=== PATIENT | male | born 1930 | race Caucasian/White ===

== ENCOUNTER 2018-06-03 10:32 | Inpatient (IN) | payer MEDICARE ==
[2018-06-03] MEDS: SOD CHLORIDE 0.9% 1,000 ML IV (10:42)
[2018-06-03 10:49] LABS: ADD MAN DIFF? NO
[2018-06-03 10:51] LABS: ABNORMAL IP MESSAGE 1; BASOPHILS % 0.5 % (0.0-2.0); EOSINOPHILS # 0.1 10^3/ul (0.0-0.5); EOSINOPHILS % 1.1 % (0.0-7.0); HEMATOCRIT 24.2 % (42.0-52.0); LYMPHOCYTES # 1.3 10^3/ul (0.8-2.9); LYMPHOCYTES % 22.5 % (15.0-51.0); MEAN CORPUSCULAR HEMOGLOBIN 18.5 pg (29.0-33.0); MEAN CORPUSCULAR HGB CONC 27.3 g/dl (32.0-37.0); MEAN PLATELET VOLUME 9.7 fl (7.4-10.4); MONOCYTE # 0.4 10^3/ul (0.3-0.9); MONOCYTES % 7.3 % (0.0-11.0); NEUTROPHIL # 3.8 10^3/ul (1.6-7.5); NEUTROPHILS % 68.4 % (39.0-77.0); PLATELET COUNT 198 10^3/UL (140-415); POSITIVE DIFF @See below; RED BLOOD COUNT 3.56 10^6/ul (4.70-6.10); RED CELL DISTRIBUTION WIDTH 20.5 % (11.5-14.5)
[2018-06-03 10:51] LABS: WHITE BLOOD COUNT 5.6 10^3/ul (4.8-10.8)
[2018-06-03 10:55] LABS: HEMOGLOBIN 6.6 g/dl (14.0-18.0)
[2018-06-03] MEDS: SOD CHLORIDE 0.9% 250 ML IV (10:55)
[2018-06-03 11:07] LABS: ANION GAP 11 (8-16); BLOOD UREA NITROGEN 15 mg/dl (7-20); CALCIUM 9.2 mg/dl (8.4-10.2); CARBON DIOXIDE 25 mmol/L (21-31); CHLORIDE 107 mmol/L (97-110); GLUCOSE 112 mg/dl (70-220); POTASSIUM 4.1 mmol/L (3.5-5.1); SODIUM 139 mmol/L (135-144)
[2018-06-03 11:11] LABS: INR 1.05; PROTIME 13.8 Sec (11.9-14.9); PT RATIO 1.1
[2018-06-03 11:12] LABS: PARTIAL THROMBOPLASTIN TIME 27.5 Sec (23.0-35.0)
[2018-06-03 11:18] LABS: TROPONIN-I < 0.012 ng/ml (0.000-0.120)
[2018-06-03] MEDS ORDERED: ACETAMINOPHEN 325 MG TAB PO (12:30)
[2018-06-03] MEDS ORDERED: ONDANSETRON 4 MG INJ IV ×2 (12:30→14:00)
[2018-06-03] MEDS ORDERED: NACL 0.9% 3 ML SYG IV (14:00)
[2018-06-03 14:20] LABS: IRON 79 ug/dl (35-150)
[2018-06-03 14:29] LABS: % IRON SATURATION 20 % SAT (22-52); TOTAL IRON BINDING CAPACITY 389 ug/dl (241-421)
[2018-06-03 15:17] LABS: FERRITIN 6.1 ng/ml (11.1-264.0)
[2018-06-03 18:16] LABS: CREATINE KINASE 34 IU/L (23-200)
[2018-06-03 18:29] LABS: CK INDEX 0.6; CK-MB < 0.22 ng/ml (0.0-2.4); TROPONIN-I < 0.012 ng/ml (0.000-0.120)
[2018-06-03 18:32] LABS: FREE T4 (FREE THYROXINE) 0.95 ng/dl (0.85-1.93)
[2018-06-03 18:39] LABS: HEMATOCRIT 28.8 % (42.0-52.0); HEMOGLOBIN 8.2 g/dl (14.0-18.0)
[2018-06-03] MEDS: ATORVASTATIN 40 MG TAB PO (21:11)
[2018-06-03] MEDS: TAMSULOSIN (SR) 0.4 MG CAP PO (21:11)
[2018-06-04 06:32] LABS: ADD UMIC YES; UR ASCORBIC ACID NEGATIVE (NEGATIVE); UR BACTERIA FEW /HPF (NONE SEEN); UR BILIRUBIN (Dip) NEGATIVE (NEGATIVE); UR BLOOD (Dip) NEGATIVE (NEGATIVE); UR CLARITY CLEAR (CLEAR); UR COLOR YELLOW (YELLOW); UR GLUCOSE (Dip) NEGATIVE (NEGATIVE); UR KETONES (Dip) NEGATIVE (NEGATIVE); UR LEUKOCYTE ESTERASE (Dip) 1+ Leu/ul (NEGATIVE); UR NITRITE (Dip) NEGATIVE (NEGATIVE); UR RBC 1 /HPF (0-5); UR SPECIFIC GRAVITY (Dip) 1.012 (1.003-1.030); UR TOTAL PROTEIN (Dip) NEGATIVE (NEGATIVE); UR UROBILINOGEN (Dip) NEGATIVE (NEGATIVE); UR WBC 14 /HPF (0-5)
[2018-06-04 06:40] LABS: ADD MAN DIFF? NO
[2018-06-04 06:43] LABS: ABNORMAL IP MESSAGE 1; BASOPHILS % 0.5 % (0.0-2.0); EOSINOPHILS # 0.1 10^3/ul (0.0-0.5); EOSINOPHILS % 1.6 % (0.0-7.0); HEMATOCRIT 25.6 % (42.0-52.0); HEMOGLOBIN 7.4 g/dl (14.0-18.0); LYMPHOCYTES # 1.1 10^3/ul (0.8-2.9); LYMPHOCYTES % 19.1 % (15.0-51.0); MEAN CORPUSCULAR HEMOGLOBIN 20.3 pg (29.0-33.0); MEAN CORPUSCULAR HGB CONC 28.9 g/dl (32.0-37.0); MEAN CORPUSCULAR VOLUME 70.3 fl (82.0-101.0); MEAN PLATELET VOLUME 9.7 fl (7.4-10.4); MONOCYTE # 0.6 10^3/ul (0.3-0.9); MONOCYTES % 9.7 % (0.0-11.0); NEUTROPHIL # 3.9 10^3/ul (1.6-7.5); NEUTROPHILS % 68.9 % (39.0-77.0); PLATELET COUNT 168 10^3/UL (140-415); POSITIVE DIFF @See below; RED BLOOD COUNT 3.64 10^6/ul (4.70-6.10); RED CELL DISTRIBUTION WIDTH 21.3 % (11.5-14.5)
[2018-06-04 06:43] LABS: WHITE BLOOD COUNT 5.7 10^3/ul (4.8-10.8)
[2018-06-04 07:32] LABS: ALANINE AMINOTRANSFERASE 36 IU/L (13-69); ALBUMIN 2.5 g/dl (3.3-4.9); ALBUMIN/GLOBULIN RATIO 1.08; ALKALINE PHOSPHATASE 47 IU/L (42-121); ANION GAP 10 (8-16); ASPARTATE AMINO TRANSFERASE 27 IU/L (15-46); BILIRUBIN,INDIRECT 0.8 mg/dl (0-1.1); BILIRUBIN,TOTAL 0.8 mg/dl (0.2-1.3); BLOOD UREA NITROGEN 16 mg/dl (7-20); CALCIUM 8.7 mg/dl (8.4-10.2); CARBON DIOXIDE 27 mmol/L (21-31); CHLORIDE 108 mmol/L (97-110); CREATININE 1.12 mg/dl (0.61-1.24); GLUCOSE 98 mg/dl (70-220); POTASSIUM 4.1 mmol/L (3.5-5.1); SODIUM 141 mmol/L (135-144); TOTAL PROTEIN 4.8 g/dl (6.1-8.1)
[2018-06-04 07:35] LABS: CK-MB < 0.22 ng/ml (0.0-2.4); TROPONIN-I < 0.012 ng/ml (0.000-0.120)
[2018-06-04 07:49] LABS: CHOL/HDL RATIO 1.5 RATIO; CHOLESTEROL 51 mg/dl (100-200); CK INDEX 0.4; CREATINE KINASE 49 IU/L (23-200); HDL CHOLESTEROL 34 mg/dl (31-75); LDL CHOLESTEROL,CALCULATED 8 mg/dl; MAGNESIUM 2.2 mg/dl (1.7-2.5); TRIGLYCERIDES 47 mg/dl (0-149)
[2018-06-04 07:49] LABS: PHOSPHORUS 2.1 mg/dl (2.5-4.9)
[2018-06-04] MEDS: CHOLECALCIFEROL 2,000 UNIT CAP PO (08:41)
[2018-06-04] MEDS: FINASTERIDE 5 MG TAB PO (08:41)
[2018-06-04 09:06] LABS: HEMOGLOBIN A1C 5.8 % (0-5.9)
[2018-06-04 11:40] LABS: OCCULT BLOOD STOOL POSITIVE (NEGATIVE)
[2018-06-04] MEDS: SOD CHLORIDE 0.9% 1,000 ML IV (13:42)
[2018-06-04] MEDS: BISACODYL (EC) 5 MG TAB PO (15:20)
[2018-06-04] MEDS: SOD FERRIC GLUC COMPLX 125 MG in SOD CHLORIDE 0.9% 100 ML IVPB (16:20)
[2018-06-04] MEDS: MAGNESIUM CITRATE 300 ML BTL PO (18:04)
[2018-06-04] MEDS: POLYETHYLENE GLYCOL 3350 119 GM POWDER PO (18:04)
[2018-06-04] MEDS: TAMSULOSIN (SR) 0.4 MG CAP PO (20:24)
[2018-06-04] MEDS: ATORVASTATIN 40 MG TAB PO (20:24)
[2018-06-05] MEDS: SOD CHLORIDE 0.9% 1,000 ML IV ×2 (01:50→05:38)
[2018-06-05] MEDS: PANTOPRAZOLE 40 MG INJ IV (05:36)
[2018-06-05] MEDS: POLYETHYLENE GLYCOL 3350 119 GM POWDER PO (05:43)
[2018-06-05 06:15] LABS: ADD MAN DIFF? NO
[2018-06-05 06:30] LABS: ABNORMAL IP MESSAGE 1; BASOPHIL # 0.1 10^3/ul (0.0-0.1); BASOPHILS % 0.5 % (0.0-2.0); EOSINOPHILS % 0.4 % (0.0-7.0); HEMOGLOBIN 7.7 g/dl (14.0-18.0); LYMPHOCYTES # 1.1 10^3/ul (0.8-2.9); LYMPHOCYTES % 9.9 % (15.0-51.0); MEAN CORPUSCULAR HEMOGLOBIN 20.6 pg (29.0-33.0); MEAN CORPUSCULAR HGB CONC 28.5 g/dl (32.0-37.0); MEAN CORPUSCULAR VOLUME 72.4 fl (82.0-101.0); MEAN PLATELET VOLUME 9.9 fl (7.4-10.4); MONOCYTE # 0.7 10^3/ul (0.3-0.9); MONOCYTES % 5.9 % (0.0-11.0); NEUTROPHIL # 9.2 10^3/ul (1.6-7.5); PLATELET COUNT 169 10^3/UL (140-415); POSITIVE DIFF @See below; RED BLOOD COUNT 3.73 10^6/ul (4.70-6.10); RED CELL DISTRIBUTION WIDTH 22.6 % (11.5-14.5)
[2018-06-05 06:30] LABS: WHITE BLOOD COUNT 11.1 10^3/ul (4.8-10.8)
[2018-06-05 06:48] LABS: INR 1.12; PROTIME 14.6 Sec (11.9-14.9); PT RATIO 1.1
[2018-06-05 07:06] LABS: ALANINE AMINOTRANSFERASE 36 IU/L (13-69); ALBUMIN 2.9 g/dl (3.3-4.9); ALBUMIN/GLOBULIN RATIO 1.26; ALKALINE PHOSPHATASE 52 IU/L (42-121); ANION GAP 11 (8-16); ASPARTATE AMINO TRANSFERASE 28 IU/L (15-46); BILIRUBIN,INDIRECT 0.4 mg/dl (0-1.1); BILIRUBIN,TOTAL 0.4 mg/dl (0.2-1.3); BLOOD UREA NITROGEN 16 mg/dl (7-20); CALCIUM 8.9 mg/dl (8.4-10.2); CARBON DIOXIDE 27 mmol/L (21-31); CHLORIDE 109 mmol/L (97-110); CREATININE 1.01 mg/dl (0.61-1.24); GLUCOSE 102 mg/dl (70-220); MAGNESIUM 2.6 mg/dl (1.7-2.5); PHOSPHORUS 2.4 mg/dl (2.5-4.9); POTASSIUM 3.8 mmol/L (3.5-5.1); SODIUM 143 mmol/L (135-144); TOTAL PROTEIN 5.2 g/dl (6.1-8.1)
[2018-06-05] MEDS: BISACODYL (EC) 5 MG TAB PO (09:06)
[2018-06-05] MEDS: FINASTERIDE 5 MG TAB PO (09:06)
[2018-06-05] MEDS: CHOLECALCIFEROL 2,000 UNIT CAP PO (09:06)
[2018-06-05 14:03] LABS: IMMEDIATE SPIN CROSSMATCH 1 2
[2018-06-05] MEDS: SOD FERRIC GLUC COMPLX 125 MG in SOD CHLORIDE 0.9% 100 ML IVPB (18:10)
[2018-06-05] MEDS: ATORVASTATIN 40 MG TAB PO (20:53)
[2018-06-05] MEDS: TAMSULOSIN (SR) 0.4 MG CAP PO (20:53)
[2018-06-05] MEDS: BARIUM SULF 2% 450 ML BTL (BERRY SMOOTHIE) PO (21:33)
[2018-06-06] MEDS: SOD CHLORIDE 0.9% 100 ML (00:02)
[2018-06-06] MEDS: IOHEXOL 300MG/ML 150 ML BTL (00:02)
[2018-06-06] MEDS: SOD CHLORIDE 0.9% 1,000 ML IV ×2 (04:15→18:41)
[2018-06-06] MEDS: PANTOPRAZOLE 40 MG INJ IV (05:48)
[2018-06-06 06:13] LABS: ADD MAN DIFF? NO
[2018-06-06 06:22] LABS: ABNORMAL IP MESSAGE 1; BASOPHILS % 0.3 % (0.0-2.0); EOSINOPHILS % 0.3 % (0.0-7.0); HEMATOCRIT 26.2 % (42.0-52.0); HEMOGLOBIN 7.9 g/dl (14.0-18.0); LYMPHOCYTES # 0.8 10^3/ul (0.8-2.9); LYMPHOCYTES % 8.1 % (15.0-51.0); MEAN CORPUSCULAR HGB CONC 30.2 g/dl (32.0-37.0); MEAN PLATELET VOLUME 9.6 fl (7.4-10.4); MONOCYTE # 0.7 10^3/ul (0.3-0.9); MONOCYTES % 7.5 % (0.0-11.0); NEUTROPHILS % 83.3 % (39.0-77.0); PLATELET COUNT 138 10^3/UL (140-415); POSITIVE DIFF @See below; RED BLOOD COUNT 3.59 10^6/ul (4.70-6.10); RED CELL DISTRIBUTION WIDTH 23.9 % (11.5-14.5)
[2018-06-06 06:22] LABS: WHITE BLOOD COUNT 9.6 10^3/ul (4.8-10.8)
[2018-06-06 06:37] LABS: ALANINE AMINOTRANSFERASE 33 IU/L (13-69); ALBUMIN 2.3 g/dl (3.3-4.9); ALKALINE PHOSPHATASE 47 IU/L (42-121); ANION GAP 10 (8-16); ASPARTATE AMINO TRANSFERASE 23 IU/L (15-46); BILIRUBIN,INDIRECT 0.7 mg/dl (0-1.1); BILIRUBIN,TOTAL 0.7 mg/dl (0.2-1.3); BLOOD UREA NITROGEN 10 mg/dl (7-20); CALCIUM 8.3 mg/dl (8.4-10.2); CARBON DIOXIDE 22 mmol/L (21-31); CHLORIDE 111 mmol/L (97-110); CREATININE 0.87 mg/dl (0.61-1.24); GLUCOSE 105 mg/dl (70-220); MAGNESIUM 2.2 mg/dl (1.7-2.5); PHOSPHORUS 2.1 mg/dl (2.5-4.9); POTASSIUM 3.7 mmol/L (3.5-5.1); SODIUM 139 mmol/L (135-144); TOTAL PROTEIN 4.6 g/dl (6.1-8.1)
[2018-06-06] MEDS: FINASTERIDE 5 MG TAB PO (08:48)
[2018-06-06] MEDS: CHOLECALCIFEROL 2,000 UNIT CAP PO (08:48)
[2018-06-06] MEDS: SOD FERRIC GLUC COMPLX 125 MG in SOD CHLORIDE 0.9% 100 ML IVPB (16:37)
[2018-06-06] MEDS: MEGESTROL (40 MG/ML) 10ML CUP PO (21:16)
[2018-06-06] MEDS: ATORVASTATIN 40 MG TAB PO (21:17)
[2018-06-06] MEDS: TAMSULOSIN (SR) 0.4 MG CAP PO (21:17)
[2018-06-07] MEDS: SOD CHLORIDE 0.9% 250 ML IV* (04:04)
[2018-06-07] MEDS: PROPOFOL 40 ML (04:04)
[2018-06-07] MEDS: EPHEDrine 50 MG INJ (04:05)
[2018-06-07] MEDS: PANTOPRAZOLE 40 MG INJ IV (06:24)
[2018-06-07] MEDS: MEGESTROL (40 MG/ML) 10ML CUP PO ×2 (08:26→20:59)
[2018-06-07] MEDS: CHOLECALCIFEROL 2,000 UNIT CAP PO (08:26)
[2018-06-07] MEDS: FINASTERIDE 5 MG TAB PO (08:26)
[2018-06-07] MEDS: CARBIDOPA/LEVODOPA (25/100) TAB PO ×2 (13:33→20:59)
[2018-06-07] MEDS: ATORVASTATIN 40 MG TAB PO (20:59)
[2018-06-07] MEDS: TAMSULOSIN (SR) 0.4 MG CAP PO (20:59)
[2018-06-07] MEDS ORDERED: CARBIDOPA 25 MG PO (21:00)
[2018-06-08] MEDS: PANTOPRAZOLE 40 MG INJ IV (05:23)
[2018-06-08] MEDS: FINASTERIDE 5 MG TAB PO (08:33)
[2018-06-08] MEDS: MEGESTROL (40 MG/ML) 10ML CUP PO ×2 (08:33→20:45)
[2018-06-08] MEDS: CHOLECALCIFEROL 2,000 UNIT CAP PO (08:33)
[2018-06-08] MEDS: CARBIDOPA/LEVODOPA (25/100) TAB PO ×3 (08:33→20:45)
[2018-06-08] MEDS: ENOXAPARIN 40 MG/0.4 ML SYG SC (08:41)
[2018-06-08] MEDS: ATORVASTATIN 40 MG TAB PO (20:45)
[2018-06-08] MEDS: TAMSULOSIN (SR) 0.4 MG CAP PO (20:45)
[2018-06-09] MEDS: PANTOPRAZOLE 40 MG INJ IV (05:30)
[2018-06-09 06:04] LABS: ADD MAN DIFF? NO
[2018-06-09 06:11] LABS: ABNORMAL IP MESSAGE 1; BASOPHILS % 0.4 % (0.0-2.0); EOSINOPHILS # 0.1 10^3/ul (0.0-0.5); EOSINOPHILS % 1.2 % (0.0-7.0); HEMATOCRIT 27.7 % (42.0-52.0); HEMOGLOBIN 8.2 g/dl (14.0-18.0); LYMPHOCYTES # 1.3 10^3/ul (0.8-2.9); LYMPHOCYTES % 17.8 % (15.0-51.0); MEAN CORPUSCULAR HEMOGLOBIN 21.9 pg (29.0-33.0); MEAN CORPUSCULAR HGB CONC 29.6 g/dl (32.0-37.0); MEAN CORPUSCULAR VOLUME 74.1 fl (82.0-101.0); MEAN PLATELET VOLUME 9.6 fl (7.4-10.4); MONOCYTE # 0.7 10^3/ul (0.3-0.9); MONOCYTES % 9.5 % (0.0-11.0); NEUTROPHIL # 5.2 10^3/ul (1.6-7.5); NEUTROPHILS % 70.2 % (39.0-77.0); NUCLEATED RED BLOOD CELLS # 0.1 10^3/ul (0.0-0.0); NUCLEATED RED BLOOD CELLS% 1.1 /100WBC (0.0-0.0); PLATELET COUNT 163 10^3/UL (140-415); POSITIVE DIFF @See below; RED BLOOD COUNT 3.74 10^6/ul (4.70-6.10); RED CELL DISTRIBUTION WIDTH 26.5 % (11.5-14.5)
[2018-06-09 06:11] LABS: WHITE BLOOD COUNT 7.4 10^3/ul (4.8-10.8)
[2018-06-09 06:44] LABS: ALANINE AMINOTRANSFERASE 17 IU/L (13-69); ALBUMIN 2.4 g/dl (3.3-4.9); ALBUMIN/GLOBULIN RATIO 1.04; ALKALINE PHOSPHATASE 50 IU/L (42-121); ANION GAP 9 (8-16); ASPARTATE AMINO TRANSFERASE 20 IU/L (15-46); BILIRUBIN,INDIRECT 0.3 mg/dl (0-1.1); BILIRUBIN,TOTAL 0.3 mg/dl (0.2-1.3); BLOOD UREA NITROGEN 9 mg/dl (7-20); CALCIUM 9.2 mg/dl (8.4-10.2); CARBON DIOXIDE 25 mmol/L (21-31); CHLORIDE 111 mmol/L (97-110); CREATININE 1.11 mg/dl (0.61-1.24); GLUCOSE 107 mg/dl (70-220); PHOSPHORUS 2.3 mg/dl (2.5-4.9); POTASSIUM 3.7 mmol/L (3.5-5.1); SODIUM 141 mmol/L (135-144); TOTAL PROTEIN 4.7 g/dl (6.1-8.1)
[2018-06-09] MEDS: FINASTERIDE 5 MG TAB PO (08:17)
[2018-06-09] MEDS: MEGESTROL (40 MG/ML) 10ML CUP PO ×2 (08:18→22:36)
[2018-06-09] MEDS: CHOLECALCIFEROL 2,000 UNIT CAP PO (08:18)
[2018-06-09] MEDS: CARBIDOPA/LEVODOPA (25/100) TAB PO ×3 (08:18→22:36)
[2018-06-09] MEDS: ENOXAPARIN 40 MG/0.4 ML SYG SC (08:20)
[2018-06-09] MEDS: SOD FERRIC GLUC COMPLX 125 MG in SOD CHLORIDE 0.9% 100 ML IVPB (18:28)
[2018-06-09] MEDS: TAMSULOSIN (SR) 0.4 MG CAP PO (22:36)
[2018-06-09] MEDS: ATORVASTATIN 40 MG TAB PO (22:36)
[2018-06-10] MEDS: PANTOPRAZOLE 40 MG INJ IV (05:08)
[2018-06-10 06:43] LABS: ADD MAN DIFF? NO
[2018-06-10 06:46] LABS: ABNORMAL IP MESSAGE 1; BASOPHILS % 0.4 % (0.0-2.0); EOSINOPHILS # 0.1 10^3/ul (0.0-0.5); EOSINOPHILS % 1.1 % (0.0-7.0); HEMATOCRIT 29.3 % (42.0-52.0); HEMOGLOBIN 8.6 g/dl (14.0-18.0); LYMPHOCYTES % 14.3 % (15.0-51.0); MEAN CORPUSCULAR HGB CONC 29.4 g/dl (32.0-37.0); MEAN CORPUSCULAR VOLUME 74.9 fl (82.0-101.0); MONOCYTE # 0.7 10^3/ul (0.3-0.9); MONOCYTES % 9.8 % (0.0-11.0); NEUTROPHIL # 5.2 10^3/ul (1.6-7.5); NEUTROPHILS % 73.5 % (39.0-77.0); NUCLEATED RED BLOOD CELLS # 0.1 10^3/ul (0.0-0.0); NUCLEATED RED BLOOD CELLS% 0.7 /100WBC (0.0-0.0); PLATELET COUNT 203 10^3/UL (140-415); POSITIVE DIFF @See below; RED BLOOD COUNT 3.91 10^6/ul (4.70-6.10); RED CELL DISTRIBUTION WIDTH 27.9 % (11.5-14.5)
[2018-06-10 06:46] LABS: WHITE BLOOD COUNT 7.1 10^3/ul (4.8-10.8)
[2018-06-10 07:07] LABS: INR 1.09; PROTIME 14.3 Sec (11.9-14.9); PT RATIO 1.1
[2018-06-10 07:18] LABS: ANION GAP 10 (8-16); BLOOD UREA NITROGEN 13 mg/dl (7-20); CALCIUM 9.3 mg/dl (8.4-10.2); CARBON DIOXIDE 26 mmol/L (21-31); CHLORIDE 108 mmol/L (97-110); CREATININE 1.03 mg/dl (0.61-1.24); GLUCOSE 107 mg/dl (70-220); MAGNESIUM 1.9 mg/dl (1.7-2.5); PHOSPHORUS 2.9 mg/dl (2.5-4.9); POTASSIUM 3.8 mmol/L (3.5-5.1); SODIUM 140 mmol/L (135-144)
[2018-06-10 07:27] LABS: TROPONIN-I < 0.012 ng/ml (0.000-0.120)
[2018-06-10] MEDS: IOHEXOL 300MG/ML 150 ML BTL (08:23)
[2018-06-10] MEDS: SOD CHLORIDE 0.9% 100 ML (08:23)
[2018-06-10] MEDS: CHOLECALCIFEROL 2,000 UNIT CAP PO (08:51)
[2018-06-10] MEDS: FINASTERIDE 5 MG TAB PO (08:51)
[2018-06-10] MEDS: CARBIDOPA/LEVODOPA (25/100) TAB PO ×3 (08:52→21:01)
[2018-06-10] MEDS: MEGESTROL (40 MG/ML) 10ML CUP PO ×2 (10:23→21:01)
[2018-06-10] MEDS: SOD FERRIC GLUC COMPLX 125 MG in SOD CHLORIDE 0.9% 100 ML IVPB (17:35)
[2018-06-10] MEDS: PEG/ELECTROLYTES 4L BTL PO (17:35)
[2018-06-10] MEDS: ATORVASTATIN 40 MG TAB PO (21:01)
[2018-06-10] MEDS: TAMSULOSIN (SR) 0.4 MG CAP PO (21:01)
[2018-06-10] MEDS: DEXTROSE 5%-0.45% NACL 1,000 ML IV ×2 (21:30→23:56)
[2018-06-11 05:57] LABS: ADD MAN DIFF? NO
[2018-06-11 05:59] LABS: WHITE BLOOD COUNT 8.8 10^3/ul (4.8-10.8)
[2018-06-11 05:59] LABS: ABNORMAL IP MESSAGE 1; BASOPHILS % 0.2 % (0.0-2.0); EOSINOPHILS # 0.1 10^3/ul (0.0-0.5); EOSINOPHILS % 0.6 % (0.0-7.0); HEMATOCRIT 29.5 % (42.0-52.0); LYMPHOCYTES # 1.1 10^3/ul (0.8-2.9); LYMPHOCYTES % 12.2 % (15.0-51.0); MEAN CORPUSCULAR HEMOGLOBIN 22.9 pg (29.0-33.0); MEAN CORPUSCULAR HGB CONC 30.5 g/dl (32.0-37.0); MEAN CORPUSCULAR VOLUME 75.1 fl (82.0-101.0); MEAN PLATELET VOLUME 10.4 fl (7.4-10.4); MONOCYTE # 0.9 10^3/ul (0.3-0.9); NEUTROPHIL # 6.7 10^3/ul (1.6-7.5); NEUTROPHILS % 76.4 % (39.0-77.0); PLATELET COUNT 235 10^3/UL (140-415); POSITIVE DIFF @See below; RED BLOOD COUNT 3.93 10^6/ul (4.70-6.10); RED CELL DISTRIBUTION WIDTH 28.5 % (11.5-14.5)
[2018-06-11] MEDS: PANTOPRAZOLE 40 MG INJ IV (06:28)
[2018-06-11 06:32] LABS: ANION GAP 10 (8-16); BLOOD UREA NITROGEN 8 mg/dl (7-20); CALCIUM 9.6 mg/dl (8.4-10.2); CARBON DIOXIDE 27 mmol/L (21-31); CHLORIDE 108 mmol/L (97-110); CREATININE 0.92 mg/dl (0.61-1.24); GLUCOSE 133 mg/dl (70-220); MAGNESIUM 1.8 mg/dl (1.7-2.5); PHOSPHORUS 2.4 mg/dl (2.5-4.9); POTASSIUM 3.9 mmol/L (3.5-5.1); SODIUM 141 mmol/L (135-144)
[2018-06-11] MEDS: DEXTROSE 5%-0.45% NACL 1,000 ML IV ×2 (07:30→17:46)
[2018-06-11] MEDS: CARBIDOPA/LEVODOPA (25/100) TAB PO ×3 (08:59→21:59)
[2018-06-11] MEDS: CHOLECALCIFEROL 2,000 UNIT CAP PO (08:59)
[2018-06-11] MEDS: FINASTERIDE 5 MG TAB PO (08:59)
[2018-06-11] MEDS: MEGESTROL (40 MG/ML) 10ML CUP PO (08:59)
[2018-06-11] MEDS ORDERED: PROPOFOL 20 ML (10:23)
[2018-06-11] MEDS ORDERED: CEFAZOLIN 1 GM INJ (10:23)
[2018-06-11] MEDS ORDERED: NEOSTIGMINE 3 MG/3 ML SYRINGE (10:23)
[2018-06-11] MEDS ORDERED: GLYCOPYRROLATE 0.4 MG INJ (10:23)
[2018-06-11] MEDS ORDERED: ROCURONIUM 50 MG INJ (10:23)
[2018-06-11] MEDS ORDERED: DEXAMETHASONE 4 MG/ML 1 ML INJ (10:24)
[2018-06-11] MEDS ORDERED: MIDAZOLAM 1 MG/ML 2 ML INJ (10:24)
[2018-06-11] MEDS ORDERED: ONDANSETRON 4 MG INJ (10:24)
[2018-06-11] MEDS ORDERED: morphine SULFATE/PF (10 MG/10 ML) INJ (10:24)
[2018-06-11] MEDS ORDERED: FENTAnyl 50 MCG/ML VIAL (10:24)
[2018-06-11] MEDS ORDERED: POLYMYXIN/BACITRACIN 1L IRRIG (11:58)
[2018-06-11] MEDS ORDERED: LIDOCAINE 1% (MDV) 20 ML INJ (11:58)
[2018-06-11] MEDS ORDERED: DIPHENHYDRAMINE 50 MG INJ IV ×2 (13:00)
[2018-06-11] MEDS ORDERED: HYDROmorphONE 0.5 MG/0.5 ML SYG IV ×2 (13:00)
[2018-06-11] MEDS ORDERED: hydrALAzine 20 MG INJ IV (13:00)
[2018-06-11] MEDS ORDERED: HYDROmorphONE 1 MG/5 ML IV SYRINGE IV ×3 (13:00)
[2018-06-11] MEDS ORDERED: NALBUPHINE HCL (10 MG/1 ML) INJ IV (13:00)
[2018-06-11] MEDS ORDERED: FENTAnyl 50 MCG/ML VIAL IV ×2 (13:00)
[2018-06-11] MEDS ORDERED: IPRATROPIUM (NEB) 0.5 MG/2.5 ML AMP HHN (13:00)
[2018-06-11] MEDS ORDERED: MEPERIDINE 25 MG INJ IV (13:00)
[2018-06-11] MEDS ORDERED: ONDANSETRON 4 MG INJ IV ×2 (13:00)
[2018-06-11] MEDS ORDERED: LABETALOL HCL 20MG INJ IV (13:00)
[2018-06-11] MEDS ORDERED: TRIMETHOBENZAMIDE 100 MG/ML VIAL IM ×2 (13:00)
[2018-06-11] MEDS ORDERED: EPHEDrine SULFATE 50 MG/5 ML SYG IV (13:00)
[2018-06-11] MEDS ORDERED: MIDAZOLAM 1 MG/ML 2 ML INJ IV (13:00)
[2018-06-11] MEDS ORDERED: NALOXONE (0.4 MG/ML) INJ IV (13:00)
[2018-06-11] MEDS ORDERED: ALBUTEROL 0.083% (NEB) 2.5 MG/3 ML AMP HHN (13:00)
[2018-06-11] MEDS ORDERED: OXYCODONE/ACETAMINOPHEN (5/325) TAB PO ×2 (13:00)
[2018-06-11] MEDS ORDERED: PHENYLephrine (100 MCG/ML) 5ML SYG (13:09)
[2018-06-11] MEDS ORDERED: SUGAMMADEX SODIUM 200 MG/2 ML VIAL IV (14:44)
[2018-06-11] MEDS: FENTAnyl 50 MCG/ML VIAL IV (15:40)
[2018-06-11 16:43] LABS: ADD MAN DIFF? NO
[2018-06-11 16:46] LABS: ABNORMAL IP MESSAGE 1; BASOPHILS % 0.1 % (0.0-2.0); EOSINOPHILS % 0.1 % (0.0-7.0); HEMATOCRIT 32.4 % (42.0-52.0); HEMOGLOBIN 9.3 g/dl (14.0-18.0); LYMPHOCYTES # 0.5 10^3/ul (0.8-2.9); LYMPHOCYTES % 5.5 % (15.0-51.0); MEAN CORPUSCULAR HEMOGLOBIN 22.3 pg (29.0-33.0); MEAN CORPUSCULAR HGB CONC 28.7 g/dl (32.0-37.0); MEAN CORPUSCULAR VOLUME 77.7 fl (82.0-101.0); MEAN PLATELET VOLUME 10.1 fl (7.4-10.4); MONOCYTE # 0.5 10^3/ul (0.3-0.9); MONOCYTES % 4.8 % (0.0-11.0); NEUTROPHIL # 8.7 10^3/ul (1.6-7.5); NEUTROPHILS % 89.1 % (39.0-77.0); POSITIVE DIFF @See below; RED BLOOD COUNT 4.17 10^6/ul (4.70-6.10)
[2018-06-11 16:46] LABS: WHITE BLOOD COUNT 9.7 10^3/ul (4.8-10.8)
[2018-06-11 16:59] LABS: PLATELET COUNT 151 10^3/UL (140-415)
[2018-06-11 17:10] LABS: ANION GAP 9 (8-16); BLOOD UREA NITROGEN 6 mg/dl (7-20); CALCIUM 8.8 mg/dl (8.4-10.2); CARBON DIOXIDE 23 mmol/L (21-31); CHLORIDE 112 mmol/L (97-110); CREATININE 0.81 mg/dl (0.61-1.24); GLUCOSE 149 mg/dl (70-220); POTASSIUM 3.9 mmol/L (3.5-5.1); SODIUM 140 mmol/L (135-144)
[2018-06-11] MEDS: SOD FERRIC GLUC COMPLX 125 MG in SOD CHLORIDE 0.9% 100 ML IVPB (17:45)
[2018-06-11] MEDS: METHYLNALTREXONE 12 MG/0.6 ML VIAL SC (17:49)
[2018-06-11] MEDS: TAMSULOSIN (SR) 0.4 MG CAP PO (21:00)
[2018-06-11] MEDS: SOD CHLORIDE 0.9% 250 ML IV (21:05)
[2018-06-11 21:25] LABS: ADD MAN DIFF? NO
[2018-06-11 21:27] LABS: ABNORMAL IP MESSAGE 1; BASOPHILS % 0.2 % (0.0-2.0); HEMATOCRIT 33.4 % (42.0-52.0); HEMOGLOBIN 9.8 g/dl (14.0-18.0); LYMPHOCYTES # 0.2 10^3/ul (0.8-2.9); LYMPHOCYTES % 1.2 % (15.0-51.0); MEAN CORPUSCULAR HEMOGLOBIN 22.5 pg (29.0-33.0); MEAN CORPUSCULAR HGB CONC 29.3 g/dl (32.0-37.0); MEAN CORPUSCULAR VOLUME 76.6 fl (82.0-101.0); MEAN PLATELET VOLUME 9.6 fl (7.4-10.4); MONOCYTE # 0.6 10^3/ul (0.3-0.9); MONOCYTES % 4.1 % (0.0-11.0); NEUTROPHIL # 14.9 10^3/ul (1.6-7.5); NEUTROPHILS % 94.2 % (39.0-77.0); PLATELET COUNT 228 10^3/UL (140-415); POSITIVE DIFF @See below; RED BLOOD COUNT 4.36 10^6/ul (4.70-6.10); RED CELL DISTRIBUTION WIDTH 28.7 % (11.5-14.5)
[2018-06-11 21:27] LABS: WHITE BLOOD COUNT 15.8 10^3/ul (4.8-10.8)
[2018-06-11 21:30] LABS: ANISOCYTOSIS 2+ (0-0); BAND NEUTROPHILS #M 2.3 10^3/ul (0.0-0.6); BAND NEUTROPHILS % (M) 24 % (0-4); BURR CELLS 1+ (0-0); EOSINOPHILS % (M) 1 % (0-7); ERYTHROBLAST% (NRBC) (M) 1 % (0-0); LYMPHOCYTES #M 0.5 10^3/ul (0.8-2.9); LYMPHOCYTES % (M) 6 % (15-51); MICROCYTOSIS 2+ (0-0); MONOCYTE #M 0.4 10^3/ul (0.3-0.9); MONOCYTES % (M) 5 % (0-11); OVALOCYTES 1+ (0-0); PLATELET MORPHOLOGY COMMENT @See below; POIKILOCYTOSIS 3+ (0-0); POLYCHROMASIA 2+ (0-0); SCHISTOCYTES 1+ (0-0); SEG NEUT #M 6.4 10^3/ul (1.6-7.5); SEGMENTED NEUTROPHILS (M) % 64 % (39-77); SMUDGE%M 10 % (0-0)
[2018-06-11 21:45] LABS: ANION GAP 13 (8-16); BLOOD UREA NITROGEN 8 mg/dl (7-20); CALCIUM 9.1 mg/dl (8.4-10.2); CARBON DIOXIDE 23 mmol/L (21-31); CHLORIDE 106 mmol/L (97-110); CREATININE 0.83 mg/dl (0.61-1.24); GLUCOSE 192 mg/dl (70-220); POTASSIUM 3.9 mmol/L (3.5-5.1); SODIUM 138 mmol/L (135-144)
[2018-06-11] MEDS: ATORVASTATIN 40 MG TAB PO (21:59)
[2018-06-11] MEDS: KETOROLAC 15 MG INJ IM (22:02)
[2018-06-12] MEDS: PIPER-TAZO 3.375 GM IV (PMX) 100 ML IVPB (00:28)
[2018-06-12] MEDS: DEXTROSE 5%-0.45% NACL 1,000 ML IV ×3 (03:30→23:30)
[2018-06-12] MEDS: ACETAMINOPHEN 1000MG/100ML IV 100 ML IVPB ×3 (05:14→17:48)
[2018-06-12] MEDS: PANTOPRAZOLE 40 MG INJ IV (05:23)
[2018-06-12 06:12] LABS: ADD MAN DIFF? NO
[2018-06-12 06:23] LABS: ABNORMAL IP MESSAGE 1; BASOPHILS % 0.1 % (0.0-2.0); HEMATOCRIT 27.6 % (42.0-52.0); HEMOGLOBIN 8.2 g/dl (14.0-18.0); LYMPHOCYTES # 0.5 10^3/ul (0.8-2.9); LYMPHOCYTES % 3.4 % (15.0-51.0); MEAN CORPUSCULAR HEMOGLOBIN 22.7 pg (29.0-33.0); MEAN CORPUSCULAR HGB CONC 29.7 g/dl (32.0-37.0); MEAN CORPUSCULAR VOLUME 76.2 fl (82.0-101.0); MEAN PLATELET VOLUME 9.8 fl (7.4-10.4); MONOCYTE # 0.6 10^3/ul (0.3-0.9); MONOCYTES % 4.8 % (0.0-11.0); NEUTROPHIL # 12.1 10^3/ul (1.6-7.5); NEUTROPHILS % 91.3 % (39.0-77.0); NUCLEATED RED BLOOD CELLS% 0.2 /100WBC (0.0-0.0); PLATELET COUNT 222 10^3/UL (140-415); POSITIVE DIFF @See below; RED BLOOD COUNT 3.62 10^6/ul (4.70-6.10); RED CELL DISTRIBUTION WIDTH 28.8 % (11.5-14.5)
[2018-06-12 06:23] LABS: WHITE BLOOD COUNT 13.3 10^3/ul (4.8-10.8)
[2018-06-12 07:02] LABS: ANION GAP 10 (8-16); BLOOD UREA NITROGEN 10 mg/dl (7-20); CALCIUM 8.7 mg/dl (8.4-10.2); CARBON DIOXIDE 25 mmol/L (21-31); CHLORIDE 106 mmol/L (97-110); CREATININE 0.93 mg/dl (0.61-1.24); GLUCOSE 162 mg/dl (70-220); MAGNESIUM 1.5 mg/dl (1.7-2.5); PHOSPHORUS 2.9 mg/dl (2.5-4.9); POTASSIUM 4.2 mmol/L (3.5-5.1); SODIUM 137 mmol/L (135-144)
[2018-06-12] MEDS: FINASTERIDE 5 MG TAB PO (08:08)
[2018-06-12] MEDS: CHOLECALCIFEROL 2,000 UNIT CAP PO (08:08)
[2018-06-12] MEDS: CARBIDOPA/LEVODOPA (25/100) TAB PO ×3 (08:08→21:42)
[2018-06-12] MEDS: SODIUM PHOSPHATE 40 MEQ in SOD CHLORIDE 0.9% 250 ML IVPB (10:02)
[2018-06-12] MEDS: SOD FERRIC GLUC COMPLX 125 MG in SOD CHLORIDE 0.9% 100 ML IVPB (16:35)
[2018-06-12] MEDS: MAGNESIUM SULFATE 2 GM/50 ML 50 ML IVPB (18:19)
[2018-06-12] MEDS: ALBUTEROL/IPRATROPIUM (NEB) 3 ML AMP HHN (19:55)
[2018-06-12] MEDS: TAMSULOSIN (SR) 0.4 MG CAP PO (21:42)
[2018-06-12] MEDS: ATORVASTATIN 40 MG TAB PO (21:42)
[2018-06-12] MEDS: KETOROLAC 15 MG INJ IM (21:46)
[2018-06-13] MEDS: ACETAMINOPHEN 1000MG/100ML IV 100 ML IVPB ×4 (01:44→17:06)
[2018-06-13] MEDS: PANTOPRAZOLE 40 MG INJ IV (06:00)
[2018-06-13 06:12] LABS: ADD MAN DIFF? NO
[2018-06-13 06:17] LABS: ABNORMAL IP MESSAGE 1; BASOPHILS % 0.1 % (0.0-2.0); EOSINOPHILS % 0.1 % (0.0-7.0); HEMATOCRIT 26.8 % (42.0-52.0); HEMOGLOBIN 7.8 g/dl (14.0-18.0); LYMPHOCYTES # 0.7 10^3/ul (0.8-2.9); LYMPHOCYTES % 5.1 % (15.0-51.0); MEAN CORPUSCULAR HEMOGLOBIN 22.3 pg (29.0-33.0); MEAN CORPUSCULAR HGB CONC 29.1 g/dl (32.0-37.0); MEAN CORPUSCULAR VOLUME 76.6 fl (82.0-101.0); MEAN PLATELET VOLUME 9.9 fl (7.4-10.4); MONOCYTE # 0.6 10^3/ul (0.3-0.9); MONOCYTES % 4.1 % (0.0-11.0); NEUTROPHIL # 12.6 10^3/ul (1.6-7.5); NEUTROPHILS % 90.2 % (39.0-77.0); PLATELET COUNT 252 10^3/UL (140-415); POSITIVE DIFF @See below; RED CELL DISTRIBUTION WIDTH 29.7 % (11.5-14.5)
[2018-06-13 06:36] LABS: ANION GAP 7 (8-16); BLOOD UREA NITROGEN 13 mg/dl (7-20); CARBON DIOXIDE 27 mmol/L (21-31); CHLORIDE 110 mmol/L (97-110); CREATININE 0.92 mg/dl (0.61-1.24); GLUCOSE 107 mg/dl (70-220); POTASSIUM 4.1 mmol/L (3.5-5.1); SODIUM 140 mmol/L (135-144)
[2018-06-13 06:41] LABS: PHOSPHORUS 3.3 mg/dl (2.5-4.9)
[2018-06-13 06:41] LABS: MAGNESIUM 2.3 mg/dl (1.7-2.5)
[2018-06-13 07:31] LABS: CALCIUM 8.7 mg/dl (8.4-10.2)
[2018-06-13] MEDS: ALBUTEROL/IPRATROPIUM (NEB) 3 ML AMP HHN ×3 (08:24→20:33)
[2018-06-13] MEDS: CHOLECALCIFEROL 2,000 UNIT CAP PO (08:54)
[2018-06-13] MEDS: DEXTROSE 5%-0.45% NACL 1,000 ML IV ×2 (08:54→17:07)
[2018-06-13] MEDS: CARBIDOPA/LEVODOPA (25/100) TAB PO ×3 (08:54→20:24)
[2018-06-13] MEDS: FINASTERIDE 5 MG TAB PO (08:54)
[2018-06-13] MEDS: METHYLNALTREXONE 12 MG/0.6 ML VIAL SC (12:06)
[2018-06-13 15:19] LABS: ADD MAN DIFF? NO
[2018-06-13 15:20] LABS: ABNORMAL IP MESSAGE 1; BASOPHILS % 0.1 % (0.0-2.0); EOSINOPHILS % 0.2 % (0.0-7.0); HEMATOCRIT 28.7 % (42.0-52.0); HEMOGLOBIN 8.5 g/dl (14.0-18.0); LYMPHOCYTES # 1.2 10^3/ul (0.8-2.9); LYMPHOCYTES % 8.8 % (15.0-51.0); MEAN CORPUSCULAR HEMOGLOBIN 22.7 pg (29.0-33.0); MEAN CORPUSCULAR HGB CONC 29.6 g/dl (32.0-37.0); MEAN CORPUSCULAR VOLUME 76.5 fl (82.0-101.0); MEAN PLATELET VOLUME 8.9 fl (7.4-10.4); MONOCYTE # 0.5 10^3/ul (0.3-0.9); MONOCYTES % 3.9 % (0.0-11.0); NEUTROPHIL # 11.4 10^3/ul (1.6-7.5); NEUTROPHILS % 86.5 % (39.0-77.0); PLATELET COUNT 284 10^3/UL (140-415); POSITIVE DIFF @See below; RED BLOOD COUNT 3.75 10^6/ul (4.70-6.10); RED CELL DISTRIBUTION WIDTH 29.7 % (11.5-14.5)
[2018-06-13 15:20] LABS: WHITE BLOOD COUNT 13.2 10^3/ul (4.8-10.8)
[2018-06-13] MEDS: SOD FERRIC GLUC COMPLX 125 MG in SOD CHLORIDE 0.9% 100 ML IVPB (17:41)
[2018-06-13] MEDS: ATORVASTATIN 40 MG TAB PO (20:24)
[2018-06-13] MEDS: TAMSULOSIN (SR) 0.4 MG CAP PO (20:24)
[2018-06-13] MEDS: KETOROLAC 15 MG INJ IM (22:16)
[2018-06-14] MEDS: ACETAMINOPHEN 1000MG/100ML IV 100 ML IVPB ×2 (00:45→05:51)
[2018-06-14 05:44] LABS: ADD MAN DIFF? NO
[2018-06-14 05:50] LABS: WHITE BLOOD COUNT 9.2 10^3/ul (4.8-10.8)
[2018-06-14 05:50] LABS: ABNORMAL IP MESSAGE 1; BASOPHILS % 0.1 % (0.0-2.0); EOSINOPHILS # 0.1 10^3/ul (0.0-0.5); HEMATOCRIT 27.1 % (42.0-52.0); HEMOGLOBIN 8.1 g/dl (14.0-18.0); LYMPHOCYTES # 0.8 10^3/ul (0.8-2.9); LYMPHOCYTES % 9.2 % (15.0-51.0); MEAN CORPUSCULAR HEMOGLOBIN 22.9 pg (29.0-33.0); MEAN CORPUSCULAR HGB CONC 29.9 g/dl (32.0-37.0); MEAN CORPUSCULAR VOLUME 76.6 fl (82.0-101.0); MEAN PLATELET VOLUME 9.9 fl (7.4-10.4); MONOCYTE # 0.4 10^3/ul (0.3-0.9); MONOCYTES % 4.6 % (0.0-11.0); NEUTROPHIL # 7.8 10^3/ul (1.6-7.5); NEUTROPHILS % 84.6 % (39.0-77.0); PLATELET COUNT 288 10^3/UL (140-415); POSITIVE DIFF @See below; RED BLOOD COUNT 3.54 10^6/ul (4.70-6.10)
[2018-06-14] MEDS: PANTOPRAZOLE 40 MG INJ IV (05:51)
[2018-06-14] MEDS: DEXTROSE 5%-0.45% NACL 1,000 ML IV ×3 (05:51→22:20)
[2018-06-14 06:25] LABS: ANION GAP 9 (8-16); BLOOD UREA NITROGEN 11 mg/dl (7-20); CALCIUM 8.6 mg/dl (8.4-10.2); CARBON DIOXIDE 23 mmol/L (21-31); CHLORIDE 112 mmol/L (97-110); GLUCOSE 101 mg/dl (70-220); POTASSIUM 3.7 mmol/L (3.5-5.1); SODIUM 140 mmol/L (135-144)
[2018-06-14] MEDS: ALBUTEROL/IPRATROPIUM (NEB) 3 ML AMP HHN ×3 (07:56→20:36)
[2018-06-14] MEDS: CARBIDOPA/LEVODOPA (25/100) TAB PO ×3 (09:25→21:02)
[2018-06-14] MEDS: FINASTERIDE 5 MG TAB PO (09:25)
[2018-06-14] MEDS: CHOLECALCIFEROL 2,000 UNIT CAP PO (09:25)
[2018-06-14] MEDS: TAMSULOSIN (SR) 0.4 MG CAP PO (21:02)
[2018-06-14] MEDS: ATORVASTATIN 40 MG TAB PO (21:02)
[2018-06-14] MEDS: KETOROLAC 15 MG INJ IM (22:00)
[2018-06-15 05:59] LABS: ADD MAN DIFF? NO
[2018-06-15 06:07] LABS: WHITE BLOOD COUNT 7.6 10^3/ul (4.8-10.8)
[2018-06-15 06:07] LABS: ABNORMAL IP MESSAGE 1; BASOPHILS % 0.3 % (0.0-2.0); EOSINOPHILS # 0.2 10^3/ul (0.0-0.5); HEMATOCRIT 29.5 % (42.0-52.0); HEMOGLOBIN 8.8 g/dl (14.0-18.0); LYMPHOCYTES % 13.2 % (15.0-51.0); MEAN CORPUSCULAR HEMOGLOBIN 22.9 pg (29.0-33.0); MEAN CORPUSCULAR HGB CONC 29.8 g/dl (32.0-37.0); MEAN CORPUSCULAR VOLUME 76.8 fl (82.0-101.0); MEAN PLATELET VOLUME 9.5 fl (7.4-10.4); MONOCYTE # 0.5 10^3/ul (0.3-0.9); MONOCYTES % 6.9 % (0.0-11.0); NEUTROPHIL # 5.8 10^3/ul (1.6-7.5); NEUTROPHILS % 76.3 % (39.0-77.0); PLATELET COUNT 353 10^3/UL (140-415); POSITIVE DIFF @See below; RED BLOOD COUNT 3.84 10^6/ul (4.70-6.10); RED CELL DISTRIBUTION WIDTH 30.3 % (11.5-14.5)
[2018-06-15 06:34] LABS: ANION GAP 7 (8-16); BLOOD UREA NITROGEN 7 mg/dl (7-20); CALCIUM 8.9 mg/dl (8.4-10.2); CARBON DIOXIDE 24 mmol/L (21-31); CHLORIDE 113 mmol/L (97-110); CREATININE 0.92 mg/dl (0.61-1.24); GLUCOSE 119 mg/dl (70-220); POTASSIUM 3.7 mmol/L (3.5-5.1); SODIUM 140 mmol/L (135-144)
[2018-06-15 06:46] LABS: MAGNESIUM 2.2 mg/dl (1.7-2.5)
[2018-06-15 06:46] LABS: PHOSPHORUS 2.3 mg/dl (2.5-4.9)
[2018-06-15] MEDS: PANTOPRAZOLE 40 MG INJ IV (06:47)
[2018-06-15] MEDS: ALBUTEROL/IPRATROPIUM (NEB) 3 ML AMP HHN ×3 (09:03→21:02)
[2018-06-15] MEDS: FINASTERIDE 5 MG TAB PO (10:07)
[2018-06-15] MEDS: CHOLECALCIFEROL 2,000 UNIT CAP PO (10:07)
[2018-06-15] MEDS: CARBIDOPA/LEVODOPA (25/100) TAB PO ×3 (10:07→21:49)
[2018-06-15] MEDS: METHYLNALTREXONE 12 MG/0.6 ML VIAL SC (10:14)
[2018-06-15] MEDS: DEXTROSE 5%-0.45% NACL 1,000 ML IV ×3 (10:16→21:49)
[2018-06-15] MEDS: ACETAMINOPHEN 325 MG TAB PO (17:08)
[2018-06-15] MEDS: ATORVASTATIN 40 MG TAB PO (21:48)
[2018-06-15] MEDS: TAMSULOSIN (SR) 0.4 MG CAP PO (21:49)
[2018-06-16] MEDS: PANTOPRAZOLE 40 MG INJ IV (05:48)
[2018-06-16 05:50] LABS: ADD MAN DIFF? NO
[2018-06-16 05:58] LABS: ABNORMAL IP MESSAGE 1; BASOPHILS % 0.3 % (0.0-2.0); EOSINOPHILS # 0.2 10^3/ul (0.0-0.5); EOSINOPHILS % 1.7 % (0.0-7.0); HEMOGLOBIN 10.6 g/dl (14.0-18.0); LYMPHOCYTES # 1.1 10^3/ul (0.8-2.9); LYMPHOCYTES % 10.2 % (15.0-51.0); MEAN CORPUSCULAR HEMOGLOBIN 23.5 pg (29.0-33.0); MEAN CORPUSCULAR HGB CONC 30.3 g/dl (32.0-37.0); MEAN CORPUSCULAR VOLUME 77.6 fl (82.0-101.0); MEAN PLATELET VOLUME 9.3 fl (7.4-10.4); MONOCYTE # 0.7 10^3/ul (0.3-0.9); MONOCYTES % 6.8 % (0.0-11.0); NEUTROPHIL # 8.8 10^3/ul (1.6-7.5); NEUTROPHILS % 80.3 % (39.0-77.0); PLATELET COUNT 448 10^3/UL (140-415); POSITIVE DIFF @See below; RED BLOOD COUNT 4.51 10^6/ul (4.70-6.10); RED CELL DISTRIBUTION WIDTH 31.5 % (11.5-14.5)
[2018-06-16 06:25] LABS: ANION GAP 8 (8-16); BLOOD UREA NITROGEN 9 mg/dl (7-20); CALCIUM 9.2 mg/dl (8.4-10.2); CARBON DIOXIDE 24 mmol/L (21-31); CHLORIDE 108 mmol/L (97-110); CREATININE 1.14 mg/dl (0.61-1.24); GLUCOSE 131 mg/dl (70-220); MAGNESIUM 2.3 mg/dl (1.7-2.5); PHOSPHORUS 2.6 mg/dl (2.5-4.9); POTASSIUM 3.9 mmol/L (3.5-5.1); SODIUM 136 mmol/L (135-144)
[2018-06-16 06:58] LABS: ALANINE AMINOTRANSFERASE 21 IU/L (13-69); ALBUMIN 2.4 g/dl (3.3-4.9); ALBUMIN/GLOBULIN RATIO 1.04; ALKALINE PHOSPHATASE 57 IU/L (42-121); ANION GAP 11 (8-16); ASPARTATE AMINO TRANSFERASE 32 IU/L (15-46); BILIRUBIN,INDIRECT 0.5 mg/dl (0-1.1); BILIRUBIN,TOTAL 0.5 mg/dl (0.2-1.3); BLOOD UREA NITROGEN 10 mg/dl (7-20); CALCIUM 9.3 mg/dl (8.4-10.2); CARBON DIOXIDE 23 mmol/L (21-31); CHLORIDE 107 mmol/L (97-110); CREATININE 1.13 mg/dl (0.61-1.24); GLUCOSE 128 mg/dl (70-220); POTASSIUM 4.2 mmol/L (3.5-5.1); SODIUM 137 mmol/L (135-144); TOTAL PROTEIN 4.7 g/dl (6.1-8.1); TRIGLYCERIDES 72 mg/dl (0-149)
[2018-06-16] MEDS: ALBUTEROL/IPRATROPIUM (NEB) 3 ML AMP HHN ×3 (07:22→20:03)
[2018-06-16] MEDS: DEXTROSE 5%-0.45% NACL 1,000 ML IV ×2 (08:04→13:30)
[2018-06-16 08:14] LABS: PREALBUMIN 15.7 mg/dl (17.6-36.0)
[2018-06-16] MEDS: METOPROLOL 5 MG INJ IV (09:58)
[2018-06-16] MEDS: FUROSEMIDE 20 MG INJ IV (10:31)
[2018-06-16 10:55] LABS: AADO2 Arterial 601.4 mmHg (7.0-24.0); Allen Test ACCEPTAB; Arterial Base Excess -6.5 mmol/L (-3.0-3); Arterial Blood Gas Oxygen Sat 96.1 mmHG (95.0-100.0); Arterial COHb 0.5 % (0.0-3.0); Arterial Fraction of Oxyhgb 95.4 % (93.0-99.0); Arterial HCO3 16.9 mmol/L (22.0-26.0); Arterial MetHb 0.2 % (0.0-1.5); Arterial Total Hemglobin 11.8 g/dl (12.0-18.0); Arterial pCO2 27.4 mmhg (35-45); MODE MASK - NRB; Site Left Radial
[2018-06-16] MEDS: CHOLECALCIFEROL 2,000 UNIT CAP PO (11:11)
[2018-06-16] MEDS: CARBIDOPA/LEVODOPA (25/100) TAB PO ×3 (11:11→20:43)
[2018-06-16] MEDS: FINASTERIDE 5 MG TAB PO (11:11)
[2018-06-16] MEDS: IPRATROPIUM (NEB) 0.5 MG/2.5 ML AMP HHN ×4 (12:12→20:03)
[2018-06-16] MEDS: LEVALBUTEROL (NEB) 0.31 MG/3 ML AMP HHN ×4 (12:12→20:08)
[2018-06-16 12:58] LABS: TROPONIN-I < 0.012 ng/ml (0.000-0.120)
[2018-06-16] MEDS: METHYLPREDNISOLONE 40 MG INJ IV ×2 (13:29→17:31)
[2018-06-16] MEDS: AMIODARONE 900 MG in DEXTROSE 5% 482 ML IV (13:30)
[2018-06-16] MEDS: ACETAMINOPHEN 1000MG/100ML IV 100 ML IVPB (13:33)
[2018-06-16] MEDS: DILTIAZEM 25 MG INJ IV (14:05)
[2018-06-16 15:41] LABS: ADD UMIC YES; UR ASCORBIC ACID NEGATIVE (NEGATIVE); UR BACTERIA MANY /HPF (NONE SEEN); UR BILIRUBIN (Dip) NEGATIVE (NEGATIVE); UR BLOOD (Dip) 1+ mg/dL (NEGATIVE); UR CLARITY SLIGHTLY CLOUDY (CLEAR); UR COLOR YELLOW (YELLOW); UR GLUCOSE (Dip) NEGATIVE (NEGATIVE); UR KETONES (Dip) TRACE mg/dL (NEGATIVE); UR LEUKOCYTE ESTERASE (Dip) NEGATIVE Leu/ul (NEGATIVE); UR MUCUS FEW /HPF (NONE SEEN); UR NITRITE (Dip) POSITIVE (NEGATIVE); UR RBC 0 /HPF (0-5); UR SPECIFIC GRAVITY (Dip) 1.011 (1.003-1.030); UR SQUAMOUS EPITHELIAL CELL FEW /HPF (FEW); UR TOTAL PROTEIN (Dip) NEGATIVE (NEGATIVE); UR UROBILINOGEN (Dip) NEGATIVE (NEGATIVE); UR WBC 0 /HPF (0-5)
[2018-06-16] MEDS: SOD CHLORIDE 0.9% 100 ML (16:52)
[2018-06-16] MEDS: IOHEXOL 100 ML (16:52)
[2018-06-16] MEDS: ACCU-CHEK XX ×3 (17:00→21:59)
[2018-06-16] MEDS: TPN 1,000 ML IV (17:28)
[2018-06-16 18:46] LABS: TROPONIN-I 0.015 ng/ml (0.000-0.120)
[2018-06-16] MEDS: METOCLOPRAMIDE 10 MG INJ IV (20:39)
[2018-06-16] MEDS: CEFEPIME 1GM/50 ML (PMX) 50 ML IVPB (20:40)
[2018-06-16] MEDS: ENOXAPARIN 80 MG/0.8 ML SYG SC (20:41)
[2018-06-16] MEDS: TAMSULOSIN (SR) 0.4 MG CAP PO (20:42)
[2018-06-16] MEDS: ATORVASTATIN 40 MG TAB PO (20:43)
[2018-06-16] MEDS: INSULIN ASPART [NOVOLOG] 3 ML PEN SC (22:36)
[2018-06-17] MEDS: METHYLPREDNISOLONE 40 MG INJ IV ×5 (00:18→23:37)
[2018-06-17] MEDS: METOCLOPRAMIDE 10 MG INJ IV ×5 (00:18→23:37)
[2018-06-17] MEDS: ACCU-CHEK XX ×6 (01:04→20:54)
[2018-06-17] MEDS: INSULIN ASPART [NOVOLOG] 3 ML PEN SC ×6 (01:06→20:51)
[2018-06-17] MEDS: IPRATROPIUM (NEB) 0.5 MG/2.5 ML AMP HHN ×6 (01:59→20:04)
[2018-06-17] MEDS: LEVALBUTEROL (NEB) 0.31 MG/3 ML AMP HHN ×6 (01:59→20:04)
[2018-06-17] MEDS: PANTOPRAZOLE 40 MG INJ IV (05:27)
[2018-06-17 05:31] LABS: ABNORMAL IP MESSAGE 1; HEMATOCRIT 30.4 % (42.0-52.0); MEAN CORPUSCULAR HEMOGLOBIN 23.4 pg (29.0-33.0); MEAN CORPUSCULAR HGB CONC 29.6 g/dl (32.0-37.0); MEAN CORPUSCULAR VOLUME 79.2 fl (82.0-101.0); MEAN PLATELET VOLUME 9.6 fl (7.4-10.4); PLATELET COUNT 244 10^3/UL (140-415); POSITIVE DIFF @See below; RED BLOOD COUNT 3.84 10^6/ul (4.70-6.10); RED CELL DISTRIBUTION WIDTH 30.7 % (11.5-14.5)
[2018-06-17 05:37] LABS: ADD MAN DIFF? YES
[2018-06-17 06:41] LABS: ANION GAP 10 (8-16); BLOOD UREA NITROGEN 20 mg/dl (7-20); CALCIUM 8.9 mg/dl (8.4-10.2); CARBON DIOXIDE 22 mmol/L (21-31); CHLORIDE 107 mmol/L (97-110); CREATININE 1.44 mg/dl (0.61-1.24); GLUCOSE 165 mg/dl (70-220); PHOSPHORUS 2.7 mg/dl (2.5-4.9); POTASSIUM 3.9 mmol/L (3.5-5.1); SODIUM 135 mmol/L (135-144)
[2018-06-17] MEDS: FINASTERIDE 5 MG TAB PO (09:00)
[2018-06-17] MEDS: CARBIDOPA/LEVODOPA (25/100) TAB PO ×3 (09:00→20:47)
[2018-06-17] MEDS: CHOLECALCIFEROL 2,000 UNIT CAP PO (09:00)
[2018-06-17] MEDS: CEFEPIME 1GM/50 ML (PMX) 50 ML IVPB ×2 (09:06→20:46)
[2018-06-17] MEDS: ENOXAPARIN 80 MG/0.8 ML SYG SC ×2 (09:24→20:51)
[2018-06-17] MEDS: TPN 1,000 ML IV (09:30)
[2018-06-17] MEDS: SOD CHLORIDE 0.9% 1,000 ML IV ×4 (10:00→22:10)
[2018-06-17] MEDS ORDERED: LINEZOLID 600 MG/D5W (PMX) 300 ML IVPB (10:00)
[2018-06-17 10:41] LABS: ACANTHOCYTES 1+ (0-0); ANISOCYTOSIS 2+ (0-0); BAND NEUTROPHILS #M 5.3 10^3/ul (0.0-0.6); BAND NEUTROPHILS % (M) 28 % (0-4); BURR CELLS 2+ (0-0); LYMPHOCYTES #M 0.5 10^3/ul (0.8-2.9); LYMPHOCYTES % (M) 3 % (15-51); MICROCYTOSIS 1+ (0-0); MONOCYTE #M 0.1 10^3/ul (0.3-0.9); MONOCYTES % (M) 1 % (0-11); MYELOCYTES #M 0.1 10^3/ul (0.0-0.0); MYELOCYTES % (M) 1 % (0-0); PLATELET ESTIMATE NORMAL; PLATELET MORPHOLOGY COMMENT @See below; POIKILOCYTOSIS 2+ (0-0); POLYCHROMASIA 2+ (0-0); SEG NEUT #M 13.7 10^3/ul (1.6-7.5); SEGMENTED NEUTROPHILS (M) % 67 % (39-77); SMUDGE%M 12 % (0-0); SPHEROCYTES 1+ (0-0); TARGET CELLS 1+ (0-0)
[2018-06-17] MEDS ORDERED: GLUCOSE GEL 15 GRAM TUBE PO ×2 (11:30)
[2018-06-17] MEDS ORDERED: VANCOMYCIN IV PER PHARMACY XX (11:30)
[2018-06-17] MEDS ORDERED: DEXTROSE 50% 50 ML SYRINGE IV ×2 (11:30)
[2018-06-17] MEDS ORDERED: GLUCOSE GEL 15 GRAM TUBE BUCCAL (11:30)
[2018-06-17] MEDS ORDERED: GLUCAGON 1 MG INJ IM (11:30)
[2018-06-17] MEDS: METHYLNALTREXONE 12 MG/0.6 ML VIAL SC (11:33)
[2018-06-17] MEDS: VANCOMYCIN 1.5 GM in SOD CHLORIDE 0.9% 250 ML IVPB (12:53)
[2018-06-17] MEDS: ACETAMINOPHEN 325 MG TAB PO ×2 (14:21→23:37)
[2018-06-17] MEDS: AMIODARONE 200 MG TAB PO (20:47)
[2018-06-17] MEDS: TAMSULOSIN (SR) 0.4 MG CAP PO (20:47)
[2018-06-17] MEDS: ATORVASTATIN 40 MG TAB PO (20:47)
[2018-06-17] MEDS: BALSAM PERU/CASTOR OIL 60 GM TUBE TOP (22:10)
[2018-06-18] MEDS: TPN 1,000 ML IV (01:14)
[2018-06-18] MEDS: INSULIN ASPART [NOVOLOG] 3 ML PEN SC ×6 (01:17→21:31)
[2018-06-18] MEDS: ACCU-CHEK XX ×6 (01:18→21:23)
[2018-06-18] MEDS: LEVALBUTEROL (NEB) 0.31 MG/3 ML AMP HHN ×6 (01:31→20:48)
[2018-06-18] MEDS: IPRATROPIUM (NEB) 0.5 MG/2.5 ML AMP HHN ×6 (01:31→20:48)
[2018-06-18] MEDS: PANTOPRAZOLE 40 MG INJ IV (05:06)
[2018-06-18] MEDS: METOCLOPRAMIDE 10 MG INJ IV ×2 (05:06→12:42)
[2018-06-18] MEDS: METHYLPREDNISOLONE 40 MG INJ IV ×2 (05:06→21:20)
[2018-06-18 05:33] LABS: WHITE BLOOD COUNT 12.7 10^3/ul (4.8-10.8)
[2018-06-18 05:33] LABS: ABNORMAL IP MESSAGE 1; HEMATOCRIT 26.4 % (42.0-52.0); HEMOGLOBIN 8.1 g/dl (14.0-18.0); MEAN CORPUSCULAR HEMOGLOBIN 23.8 pg (29.0-33.0); MEAN CORPUSCULAR HGB CONC 30.7 g/dl (32.0-37.0); MEAN CORPUSCULAR VOLUME 77.4 fl (82.0-101.0); PLATELET COUNT 233 10^3/UL (140-415); POSITIVE DIFF @See below; RED BLOOD COUNT 3.41 10^6/ul (4.70-6.10); RED CELL DISTRIBUTION WIDTH 30.8 % (11.5-14.5)
[2018-06-18 05:59] LABS: ADD MAN DIFF? YES
[2018-06-18 06:47] LABS: ANION GAP 8 (8-16); BLOOD UREA NITROGEN 25 mg/dl (7-20); CALCIUM 8.5 mg/dl (8.4-10.2); CARBON DIOXIDE 22 mmol/L (21-31); CHLORIDE 110 mmol/L (97-110); GLUCOSE 158 mg/dl (70-220); MAGNESIUM 2.1 mg/dl (1.7-2.5); PHOSPHORUS 2.4 mg/dl (2.5-4.9); SODIUM 136 mmol/L (135-144)
[2018-06-18 08:12] LABS: ANISOCYTOSIS 2+ (0-0); BAND NEUTROPHILS % (M) 24 % (0-4); BURR CELLS 1+ (0-0); GIANT THROMBO% (M) 1 % (0-0); HYPOCHROMASIA 1+ (0-0); LYMPHOCYTES #M 0.2 10^3/ul (0.8-2.9); LYMPHOCYTES % (M) 2 % (15-51); MICROCYTOSIS 1+ (0-0); MYELOCYTES #M 0.1 10^3/ul (0.0-0.0); MYELOCYTES % (M) 1 % (0-0); OVALOCYTES 1+ (0-0); PLATELET ESTIMATE NORMAL; POIKILOCYTOSIS 3+ (0-0); POLYCHROMASIA 1+ (0-0); SEG NEUT #M 9.7 10^3/ul (1.6-7.5); SEGMENTED NEUTROPHILS (M) % 73 % (39-77); SMUDGE%M 2 % (0-0)
[2018-06-18] MEDS: CEFEPIME 1GM/50 ML (PMX) 50 ML IVPB ×2 (08:28→21:23)
[2018-06-18] MEDS: CARBIDOPA/LEVODOPA (25/100) TAB PO ×3 (08:31→21:22)
[2018-06-18] MEDS: FINASTERIDE 5 MG TAB PO (08:31)
[2018-06-18] MEDS: CHOLECALCIFEROL 2,000 UNIT CAP PO (08:31)
[2018-06-18] MEDS: AMIODARONE 200 MG TAB PO ×2 (08:31→21:22)
[2018-06-18] MEDS: BALSAM PERU/CASTOR OIL 60 GM TUBE TOP ×2 (08:39→21:25)
[2018-06-18] MEDS: ENOXAPARIN 80 MG/0.8 ML SYG SC (09:21)
[2018-06-18] MEDS: POTASSIUM PHOSPHATE 15 MM in SOD CHLORIDE 0.9% 250 ML IV (12:51)
[2018-06-18] MEDS: VANCOMYCIN 1 GM 250 ML IVPB (14:32)
[2018-06-18] MEDS: ATORVASTATIN 40 MG TAB PO (21:22)
[2018-06-18] MEDS: TAMSULOSIN (SR) 0.4 MG CAP PO (21:22)
[2018-06-18] MEDS: APIXABAN 5 MG TABLET PO (21:23)
[2018-06-19] MEDS ORDERED: VANCOMYCIN 1 GM 250 ML IVPB (01:00)
[2018-06-19] MEDS: INSULIN ASPART [NOVOLOG] 3 ML PEN SC ×5 (01:32→21:00)
[2018-06-19] MEDS: LEVALBUTEROL (NEB) 0.31 MG/3 ML AMP HHN ×6 (01:44→20:30)
[2018-06-19] MEDS: IPRATROPIUM (NEB) 0.5 MG/2.5 ML AMP HHN ×6 (01:44→20:29)
[2018-06-19] MEDS: PANTOPRAZOLE 40 MG INJ IV (05:20)
[2018-06-19 06:39] LABS: BLOOD UREA NITROGEN 27 mg/dl (7-20); CARBON DIOXIDE 19 mmol/L (21-31); CHLORIDE 110 mmol/L (97-110); CREATININE 0.78 mg/dl (0.61-1.24); GLUCOSE 147 mg/dl (70-220); MAGNESIUM 2.2 mg/dl (1.7-2.5); POTASSIUM 3.7 mmol/L (3.5-5.1); SODIUM 137 mmol/L (135-144)
[2018-06-19] MEDS: ACCU-CHEK XX ×4 (07:00→21:07)
[2018-06-19 08:19] LABS: ABNORMAL IP MESSAGE 1; HEMATOCRIT 26.4 % (42.0-52.0); MEAN CORPUSCULAR HEMOGLOBIN 23.9 pg (29.0-33.0); MEAN CORPUSCULAR HGB CONC 30.3 g/dl (32.0-37.0); MEAN CORPUSCULAR VOLUME 78.8 fl (82.0-101.0); MEAN PLATELET VOLUME 10.6 fl (7.4-10.4); PLATELET COUNT 187 10^3/UL (140-415); POSITIVE DIFF @See below; RED BLOOD COUNT 3.35 10^6/ul (4.70-6.10)
[2018-06-19 08:19] LABS: WHITE BLOOD COUNT 12.7 10^3/ul (4.8-10.8)
[2018-06-19 08:24] LABS: ADD MAN DIFF? YES
[2018-06-19] MEDS: METHYLPREDNISOLONE 40 MG INJ IV ×2 (08:40→21:06)
[2018-06-19] MEDS: CEFEPIME 1GM/50 ML (PMX) 50 ML IVPB ×2 (08:40→21:06)
[2018-06-19] MEDS: CHOLECALCIFEROL 2,000 UNIT CAP PO (08:41)
[2018-06-19] MEDS: APIXABAN 5 MG TABLET PO ×2 (08:41→21:07)
[2018-06-19] MEDS: CARBIDOPA/LEVODOPA (25/100) TAB PO ×3 (08:41→21:07)
[2018-06-19] MEDS: AMIODARONE 200 MG TAB PO ×2 (08:41→21:07)
[2018-06-19] MEDS: FINASTERIDE 5 MG TAB PO (08:41)
[2018-06-19] MEDS ORDERED: APIXABAN 5 MG TABLET PO (09:00)
[2018-06-19] MEDS: BALSAM PERU/CASTOR OIL 60 GM TUBE TOP ×3 (09:00→21:00)
[2018-06-19 09:26] LABS: ANION GAP 8 (5-13)
[2018-06-19 09:50] LABS: ANISOCYTOSIS 2+ (0-0); BAND NEUTROPHILS #M 0.6 10^3/ul (0.0-0.6); BAND NEUTROPHILS % (M) 5 % (0-4); BURR CELLS 3+ (0-0); EOSINOPHILS % (M) 1 % (0-7); HYPOCHROMASIA 1+ (0-0); LYMPHOCYTES #M 0.2 10^3/ul (0.8-2.9); LYMPHOCYTES % (M) 2 % (15-51); METAMYELOCYTES #M 0.1 10^3/ul (0.0-0.0); METAMYELOCYTES %M 1 % (0-0); MICROCYTOSIS 1+ (0-0); MONOCYTE #M 0.1 10^3/ul (0.3-0.9); MONOCYTES % (M) 1 % (0-11); PLATELET ESTIMATE NORMAL; POIKILOCYTOSIS 3+ (0-0); POLYCHROMASIA 1+ (0-0); SEG NEUT #M 11.5 10^3/ul (1.6-7.5); SEGMENTED NEUTROPHILS (M) % 90 % (39-77); SMUDGE%M 13 % (0-0)
[2018-06-19] MEDS: TAMSULOSIN (SR) 0.4 MG CAP PO (21:07)
[2018-06-19] MEDS: ATORVASTATIN 40 MG TAB PO (21:07)
[2018-06-20] MEDS: IPRATROPIUM (NEB) 0.5 MG/2.5 ML AMP HHN ×6 (01:19→20:40)
[2018-06-20] MEDS: LEVALBUTEROL (NEB) 0.31 MG/3 ML AMP HHN ×6 (01:19→20:40)
[2018-06-20 05:13] LABS: ADD MAN DIFF? NO
[2018-06-20 05:22] LABS: ABNORMAL IP MESSAGE 1; BASOPHILS % 0.1 % (0.0-2.0); HEMATOCRIT 25.5 % (42.0-52.0); HEMOGLOBIN 7.9 g/dl (14.0-18.0); LYMPHOCYTES # 0.3 10^3/ul (0.8-2.9); LYMPHOCYTES % 1.5 % (15.0-51.0); MEAN CORPUSCULAR HEMOGLOBIN 23.8 pg (29.0-33.0); MEAN CORPUSCULAR VOLUME 76.8 fl (82.0-101.0); MEAN PLATELET VOLUME 9.8 fl (7.4-10.4); MONOCYTE # 0.4 10^3/ul (0.3-0.9); MONOCYTES % 2.3 % (0.0-11.0); NEUTROPHIL # 16.3 10^3/ul (1.6-7.5); NEUTROPHILS % 95.2 % (39.0-77.0); PLATELET COUNT 223 10^3/UL (140-415); POSITIVE DIFF @See below; RED BLOOD COUNT 3.32 10^6/ul (4.70-6.10)
[2018-06-20 05:22] LABS: WHITE BLOOD COUNT 17.1 10^3/ul (4.8-10.8)
[2018-06-20 05:51] LABS: ALBUMIN 2.5 g/dl (3.3-4.9); ANION GAP 7 (5-13); BLOOD UREA NITROGEN 24 mg/dl (7-20); CALCIUM 8.7 mg/dl (8.4-10.2); CARBON DIOXIDE 21 mmol/L (21-31); CHLORIDE 110 mmol/L (97-110); CREATININE 0.83 mg/dl (0.61-1.24); GLUCOSE 163 mg/dl (70-220); MAGNESIUM 2.4 mg/dl (1.7-2.5); PHOSPHORUS 1.8 mg/dl (2.5-4.9); POTASSIUM 3.5 mmol/L (3.5-5.1); SODIUM 138 mmol/L (135-144)
[2018-06-20] MEDS: ACCU-CHEK XX (06:01)
[2018-06-20] MEDS: PANTOPRAZOLE 40 MG INJ IV (06:50)
[2018-06-20] MEDS: INSULIN ASPART [NOVOLOG] 3 ML PEN SC ×4 (07:43→21:00)
[2018-06-20] MEDS: APIXABAN 5 MG TABLET PO ×2 (08:08→21:01)
[2018-06-20] MEDS: CARBIDOPA/LEVODOPA (25/100) TAB PO ×3 (08:08→21:01)
[2018-06-20] MEDS: AMIODARONE 200 MG TAB PO (08:08)
[2018-06-20] MEDS: FINASTERIDE 5 MG TAB PO (08:08)
[2018-06-20] MEDS: predniSONE 20 MG TAB PO (08:08)
[2018-06-20] MEDS: CHOLECALCIFEROL 2,000 UNIT CAP PO (08:08)
[2018-06-20] MEDS: CEFEPIME 1GM/50 ML (PMX) 50 ML IVPB ×2 (08:09→21:01)
[2018-06-20] MEDS: BALSAM PERU/CASTOR OIL 60 GM TUBE TOP ×2 (08:09→21:03)
[2018-06-20] MEDS: ATORVASTATIN 40 MG TAB PO (21:01)
[2018-06-20] MEDS: TAMSULOSIN (SR) 0.4 MG CAP PO (21:01)
[2018-06-21] MEDS: IPRATROPIUM (NEB) 0.5 MG/2.5 ML AMP HHN ×6 (01:19→20:50)
[2018-06-21] MEDS: LEVALBUTEROL (NEB) 0.31 MG/3 ML AMP HHN ×6 (01:19→20:50)
[2018-06-21 06:11] LABS: ADD MAN DIFF? NO
[2018-06-21] MEDS: PANTOPRAZOLE 40 MG INJ IV (06:14)
[2018-06-21 06:20] LABS: WHITE BLOOD COUNT 13.9 10^3/ul (4.8-10.8)
[2018-06-21 06:20] LABS: ABNORMAL IP MESSAGE 1; BASOPHILS % 0.1 % (0.0-2.0); HEMATOCRIT 26.5 % (42.0-52.0); HEMOGLOBIN 8.2 g/dl (14.0-18.0); LYMPHOCYTES # 0.4 10^3/ul (0.8-2.9); LYMPHOCYTES % 3.2 % (15.0-51.0); MEAN CORPUSCULAR HEMOGLOBIN 23.8 pg (29.0-33.0); MEAN CORPUSCULAR HGB CONC 30.9 g/dl (32.0-37.0); MEAN PLATELET VOLUME 10.1 fl (7.4-10.4); MONOCYTE # 0.5 10^3/ul (0.3-0.9); MONOCYTES % 3.5 % (0.0-11.0); NEUTROPHIL # 12.8 10^3/ul (1.6-7.5); NEUTROPHILS % 92.2 % (39.0-77.0); PLATELET COUNT 214 10^3/UL (140-415); POSITIVE DIFF @See below; RED BLOOD COUNT 3.44 10^6/ul (4.70-6.10); RED CELL DISTRIBUTION WIDTH 31.1 % (11.5-14.5)
[2018-06-21 06:49] LABS: ALBUMIN 2.5 g/dl (3.3-4.9); ANION GAP 5 (5-13); BLOOD UREA NITROGEN 23 mg/dl (7-20); CALCIUM 8.9 mg/dl (8.4-10.2); CARBON DIOXIDE 26 mmol/L (21-31); CHLORIDE 109 mmol/L (97-110); CREATININE 0.81 mg/dl (0.61-1.24); GLUCOSE 121 mg/dl (70-220); MAGNESIUM 2.4 mg/dl (1.7-2.5); PHOSPHORUS 1.9 mg/dl (2.5-4.9); POTASSIUM 3.3 mmol/L (3.5-5.1); SODIUM 140 mmol/L (135-144)
[2018-06-21] MEDS: INSULIN ASPART [NOVOLOG] 3 ML PEN SC ×4 (07:41→21:00)
[2018-06-21] MEDS: predniSONE 20 MG TAB PO (09:38)
[2018-06-21] MEDS: POTASSIUM CHLORIDE (SR) 20 MEQ TAB PO (09:38)
[2018-06-21] MEDS: APIXABAN 5 MG TABLET PO ×2 (09:39→21:37)
[2018-06-21] MEDS: FINASTERIDE 5 MG TAB PO (09:39)
[2018-06-21] MEDS: CHOLECALCIFEROL 2,000 UNIT CAP PO (09:40)
[2018-06-21] MEDS: BALSAM PERU/CASTOR OIL 60 GM TUBE TOP ×2 (09:40→21:38)
[2018-06-21] MEDS: CARBIDOPA/LEVODOPA (25/100) TAB PO ×3 (09:40→21:37)
[2018-06-21] MEDS: AMIODARONE 200 MG TAB PO (09:40)
[2018-06-21] MEDS: CEFEPIME 1GM/50 ML (PMX) 50 ML IVPB ×2 (09:51→21:37)
[2018-06-21] MEDS: POTASSIUM PHOSPHATE 40 MEQ in SOD CHLORIDE 0.9% 250 ML IVPB (10:58)
[2018-06-21] MEDS: ATORVASTATIN 40 MG TAB PO (21:37)
[2018-06-21] MEDS: TAMSULOSIN (SR) 0.4 MG CAP PO (21:37)
[2018-06-22] MEDS: LEVALBUTEROL (NEB) 0.31 MG/3 ML AMP HHN ×6 (00:23→21:29)
[2018-06-22] MEDS: IPRATROPIUM (NEB) 0.5 MG/2.5 ML AMP HHN ×6 (00:23→21:28)
[2018-06-22 05:11] LABS: ADD MAN DIFF? NO
[2018-06-22 05:12] LABS: WHITE BLOOD COUNT 14.1 10^3/ul (4.8-10.8)
[2018-06-22 05:12] LABS: ABNORMAL IP MESSAGE 1; BASOPHILS % 0.1 % (0.0-2.0); HEMATOCRIT 27.5 % (42.0-52.0); HEMOGLOBIN 8.5 g/dl (14.0-18.0); LYMPHOCYTES # 0.5 10^3/ul (0.8-2.9); LYMPHOCYTES % 3.3 % (15.0-51.0); MEAN CORPUSCULAR HEMOGLOBIN 23.5 pg (29.0-33.0); MEAN CORPUSCULAR HGB CONC 30.9 g/dl (32.0-37.0); MEAN PLATELET VOLUME 9.3 fl (7.4-10.4); MONOCYTE # 0.3 10^3/ul (0.3-0.9); MONOCYTES % 1.8 % (0.0-11.0); NEUTROPHIL # 13.2 10^3/ul (1.6-7.5); NEUTROPHILS % 93.3 % (39.0-77.0); NUCLEATED RED BLOOD CELLS% 0.2 /100WBC (0.0-0.0); PLATELET COUNT 218 10^3/UL (140-415); POSITIVE DIFF @See below; RED BLOOD COUNT 3.62 10^6/ul (4.70-6.10)
[2018-06-22 06:01] LABS: ALBUMIN 2.2 g/dl (3.3-4.9); ANION GAP 7 (5-13); BLOOD UREA NITROGEN 20 mg/dl (7-20); CARBON DIOXIDE 25 mmol/L (21-31); CHLORIDE 106 mmol/L (97-110); CREATININE 0.78 mg/dl (0.61-1.24); GLUCOSE 124 mg/dl (70-220); MAGNESIUM 2.2 mg/dl (1.7-2.5); POTASSIUM 3.6 mmol/L (3.5-5.1); SODIUM 138 mmol/L (135-144)
[2018-06-22] MEDS: PANTOPRAZOLE 40 MG INJ IV (06:52)
[2018-06-22] MEDS: INSULIN ASPART [NOVOLOG] 3 ML PEN SC ×4 (07:36→20:22)
[2018-06-22] MEDS: CEFEPIME 1GM/50 ML (PMX) 50 ML IVPB ×2 (08:36→20:22)
[2018-06-22] MEDS: APIXABAN 5 MG TABLET PO ×2 (08:42→20:21)
[2018-06-22] MEDS: CHOLECALCIFEROL 2,000 UNIT CAP PO (08:42)
[2018-06-22] MEDS: predniSONE 20 MG TAB PO (08:43)
[2018-06-22] MEDS: FINASTERIDE 5 MG TAB PO (08:44)
[2018-06-22] MEDS: AMIODARONE 200 MG TAB PO (08:44)
[2018-06-22] MEDS: CARBIDOPA/LEVODOPA (25/100) TAB PO ×3 (08:44→20:21)
[2018-06-22] MEDS: BALSAM PERU/CASTOR OIL 60 GM TUBE TOP ×2 (08:44→21:00)
[2018-06-22 10:15] LABS: PREALBUMIN 9.9 mg/dl (17.6-36.0)
[2018-06-22 10:44] LABS: AADO2 Arterial 336.7 mmHg (7.0-24.0); Allen Test ACCEPTAB; Arterial Base Excess 0.2 mmol/L (-3.0-3); Arterial Blood Gas Oxygen Sat 93.3 mmHG (95.0-100.0); Arterial COHb 0.5 % (0.0-3.0); Arterial Fraction of Oxyhgb 92.6 % (93.0-99.0); Arterial MetHb 0.3 % (0.0-1.5); Arterial pCO2 30.3 mmhg (35-45); MODE MASK - SIMPLE; Site Right Radial
[2018-06-22 12:08] LABS: ADD UMIC YES; UR ASCORBIC ACID NEGATIVE (NEGATIVE); UR BILIRUBIN (Dip) NEGATIVE (NEGATIVE); UR BLOOD (Dip) 2+ mg/dL (NEGATIVE); UR CLARITY CLEAR (CLEAR); UR COLOR YELLOW (YELLOW); UR GLUCOSE (Dip) 2+ mg/dL (NEGATIVE); UR KETONES (Dip) NEGATIVE (NEGATIVE); UR LEUKOCYTE ESTERASE (Dip) NEGATIVE Leu/ul (NEGATIVE); UR MUCUS FEW /HPF (NONE SEEN); UR NITRITE (Dip) NEGATIVE (NEGATIVE); UR RBC 1 /HPF (0-5); UR SPECIFIC GRAVITY (Dip) 1.018 (1.003-1.030); UR TOTAL PROTEIN (Dip) 1+ mg/dl (NEGATIVE); UR UROBILINOGEN (Dip) NEGATIVE (NEGATIVE); UR WBC 4 /HPF (0-5)
[2018-06-22] MEDS: FUROSEMIDE 20 MG INJ IV (14:42)
[2018-06-22 16:07] LABS: TROPONIN-I < 0.012 ng/ml (0.000-0.120)
[2018-06-22 16:29] LABS: B-TYPE NATRIURETIC PEPTIDE 7840 PG/ML (0-450)
[2018-06-22] MEDS: TAMSULOSIN (SR) 0.4 MG CAP PO (20:21)
[2018-06-22] MEDS: ATORVASTATIN 40 MG TAB PO (20:21)
[2018-06-22] MEDS: METOPROLOL 25 MG TAB PO (20:22)
[2018-06-23] MEDS: IPRATROPIUM (NEB) 0.5 MG/2.5 ML AMP HHN ×6 (02:03→20:33)
[2018-06-23] MEDS: LEVALBUTEROL (NEB) 0.31 MG/3 ML AMP HHN ×6 (02:05→20:33)
[2018-06-23] MEDS: PANTOPRAZOLE 40 MG INJ IV (05:15)
[2018-06-23 05:49] LABS: ADD MAN DIFF? NO
[2018-06-23 05:57] LABS: ABNORMAL IP MESSAGE 1; BASOPHILS % 0.1 % (0.0-2.0); EOSINOPHILS % 0.1 % (0.0-7.0); HEMATOCRIT 27.5 % (42.0-52.0); HEMOGLOBIN 8.6 g/dl (14.0-18.0); LYMPHOCYTES # 0.5 10^3/ul (0.8-2.9); LYMPHOCYTES % 3.1 % (15.0-51.0); MEAN CORPUSCULAR HEMOGLOBIN 23.9 pg (29.0-33.0); MEAN CORPUSCULAR HGB CONC 31.3 g/dl (32.0-37.0); MEAN CORPUSCULAR VOLUME 76.4 fl (82.0-101.0); MEAN PLATELET VOLUME 10.6 fl (7.4-10.4); MONOCYTE # 0.2 10^3/ul (0.3-0.9); MONOCYTES % 1.1 % (0.0-11.0); NEUTROPHIL # 13.6 10^3/ul (1.6-7.5); NEUTROPHILS % 94.8 % (39.0-77.0); NUCLEATED RED BLOOD CELLS% 0.1 /100WBC (0.0-0.0); PLATELET COUNT 253 10^3/UL (140-415); POSITIVE DIFF @See below
[2018-06-23 05:57] LABS: WHITE BLOOD COUNT 14.3 10^3/ul (4.8-10.8)
[2018-06-23 06:00] LABS: AADO2 Arterial 163.9 mmHg (7.0-24.0); Allen Test ACCEPTAB; Arterial Base Excess 3.8 mmol/L (-3.0-3); Arterial Blood Gas Oxygen Sat 96.1 mmHG (95.0-100.0); Arterial COHb 0.3 % (0.0-3.0); Arterial Fraction of Oxyhgb 95.6 % (93.0-99.0); Arterial HCO3 26.5 mmol/L (22.0-26.0); Arterial MetHb 0.2 % (0.0-1.5); Arterial Total Hemglobin 9.4 g/dl (12.0-18.0); Blood Gas PS 10; MODE MASK - BIPAP; Site Right Radial
[2018-06-23 06:12] LABS: ALBUMIN 2.4 g/dl (3.3-4.9); ANION GAP 6 (5-13); BLOOD UREA NITROGEN 22 mg/dl (7-20); CALCIUM 8.6 mg/dl (8.4-10.2); CARBON DIOXIDE 27 mmol/L (21-31); CHLORIDE 106 mmol/L (97-110); GLUCOSE 115 mg/dl (70-220); MAGNESIUM 2.2 mg/dl (1.7-2.5); PHOSPHORUS 2.6 mg/dl (2.5-4.9); POTASSIUM 3.2 mmol/L (3.5-5.1); SODIUM 139 mmol/L (135-144)
[2018-06-23] MEDS: INSULIN ASPART [NOVOLOG] 3 ML PEN SC ×4 (07:54→21:00)
[2018-06-23] MEDS: CEFEPIME 1GM/50 ML (PMX) 50 ML IVPB (09:06)
[2018-06-23] MEDS: APIXABAN 5 MG TABLET PO (09:06)
[2018-06-23] MEDS: BALSAM PERU/CASTOR OIL 60 GM TUBE TOP ×2 (09:07→21:43)
[2018-06-23] MEDS: AMIODARONE 200 MG TAB PO (09:07)
[2018-06-23] MEDS: CHOLECALCIFEROL 2,000 UNIT CAP PO (09:07)
[2018-06-23] MEDS: FINASTERIDE 5 MG TAB PO (09:07)
[2018-06-23] MEDS: CARBIDOPA/LEVODOPA (25/100) TAB PO ×3 (09:07→21:18)
[2018-06-23] MEDS: METOPROLOL 25 MG TAB PO ×2 (09:07→21:17)
[2018-06-23] MEDS: POTASSIUM CHLORIDE 100 ML IVPB ×3 (10:49→15:32)
[2018-06-23] MEDS: FUROSEMIDE 20 MG INJ IV (15:10)
[2018-06-23] MEDS ORDERED: VANCOMYCIN IV PER PHARMACY XX (15:30)
[2018-06-23] MEDS: MEROPENEM 500MG/50 ML (PMX) 50 ML IVPB (17:39)
[2018-06-23] MEDS: VANCOMYCIN 1.5 GM in SOD CHLORIDE 0.9% 250 ML IVPB (18:39)
[2018-06-23] MEDS: ATORVASTATIN 40 MG TAB PO (21:17)
[2018-06-23] MEDS: TAMSULOSIN (SR) 0.4 MG CAP PO (21:18)
[2018-06-23] MEDS: ENOXAPARIN 100 MG/ML SYG SC (21:31)
[2018-06-23] MEDS: DEXTROSE 5%-0.45% NACL 1,000 ML IV (21:39)
[2018-06-23] MEDS: BUDESONIDE (NEB) 0.5MG/2ML AMP HHN (21:50)
[2018-06-24] MEDS: MEROPENEM 500MG/50 ML (PMX) 50 ML IVPB ×2 (01:06→05:08)
[2018-06-24] MEDS: IPRATROPIUM (NEB) 0.5 MG/2.5 ML AMP HHN ×6 (02:20→20:24)
[2018-06-24] MEDS: LEVALBUTEROL (NEB) 0.31 MG/3 ML AMP HHN ×6 (02:21→20:24)
[2018-06-24] MEDS: DEXTROSE 5%-0.45% NACL 1,000 ML IV (03:10)
[2018-06-24] MEDS: PANTOPRAZOLE 40 MG INJ IV (05:08)
[2018-06-24 05:40] LABS: ADD MAN DIFF? NO
[2018-06-24 05:50] LABS: ABNORMAL IP MESSAGE 1; BASOPHILS % 0.1 % (0.0-2.0); EOSINOPHILS % 0.2 % (0.0-7.0); HEMATOCRIT 26.8 % (42.0-52.0); HEMOGLOBIN 8.3 g/dl (14.0-18.0); LYMPHOCYTES # 0.4 10^3/ul (0.8-2.9); LYMPHOCYTES % 2.6 % (15.0-51.0); MEAN CORPUSCULAR HEMOGLOBIN 23.7 pg (29.0-33.0); MEAN CORPUSCULAR VOLUME 76.6 fl (82.0-101.0); MEAN PLATELET VOLUME 10.2 fl (7.4-10.4); MONOCYTE # 0.2 10^3/ul (0.3-0.9); MONOCYTES % 1.5 % (0.0-11.0); NEUTROPHIL # 13.7 10^3/ul (1.6-7.5); NEUTROPHILS % 94.7 % (39.0-77.0); PLATELET COUNT 253 10^3/UL (140-415)
[2018-06-24 05:50] LABS: WHITE BLOOD COUNT 14.5 10^3/ul (4.8-10.8)
[2018-06-24 06:19] LABS: ANION GAP 4 (5-13); BLOOD UREA NITROGEN 28 mg/dl (7-20); CALCIUM 8.7 mg/dl (8.4-10.2); CARBON DIOXIDE 31 mmol/L (21-31); CHLORIDE 105 mmol/L (97-110); CREATININE 0.85 mg/dl (0.61-1.24); GLUCOSE 126 mg/dl (70-220); MAGNESIUM 2.3 mg/dl (1.7-2.5); PHOSPHORUS 2.3 mg/dl (2.5-4.9); POTASSIUM 3.5 mmol/L (3.5-5.1); SODIUM 140 mmol/L (135-144)
[2018-06-24] MEDS: INSULIN ASPART [NOVOLOG] 3 ML PEN SC ×4 (07:58→21:00)
[2018-06-24] MEDS: CHOLECALCIFEROL 2,000 UNIT CAP PO (08:53)
[2018-06-24] MEDS: NEUTRA-PHOS 250 MG PACKET NGT (08:53)
[2018-06-24] MEDS: CARBIDOPA/LEVODOPA (25/100) TAB PO ×3 (08:53→21:37)
[2018-06-24] MEDS: METOPROLOL 25 MG TAB PO ×2 (08:53→21:37)
[2018-06-24] MEDS: AMIODARONE 200 MG TAB PO (08:53)
[2018-06-24] MEDS: POTASSIUM CHLORIDE 20 MEQ POWDER FOR ORAL SOLN NGT (08:54)
[2018-06-24] MEDS: METHYLPREDNISOLONE 40 MG INJ IV ×2 (08:55→21:36)
[2018-06-24] MEDS: FUROSEMIDE 20 MG INJ IV (08:55)
[2018-06-24] MEDS: ENOXAPARIN 100 MG/ML SYG SC ×2 (08:57→21:43)
[2018-06-24] MEDS: BALSAM PERU/CASTOR OIL 60 GM TUBE TOP ×2 (08:58→21:38)
[2018-06-24] MEDS ORDERED: predniSONE 50 MG TAB PO (09:00)
[2018-06-24] MEDS: BUDESONIDE (NEB) 0.5MG/2ML AMP HHN ×2 (09:11→20:24)
[2018-06-24] MEDS: FINASTERIDE 5 MG TAB PO (09:15)
[2018-06-24] MEDS: VANCOMYCIN 1 GM 250 ML IVPB (17:52)
[2018-06-24] MEDS: MEROPENEM 1 GM/50ML(PMX) 50 ML IVPB (21:36)
[2018-06-24] MEDS: ATORVASTATIN 40 MG TAB PO (21:37)
[2018-06-24] MEDS: TAMSULOSIN (SR) 0.4 MG CAP PO (21:37)
[2018-06-25] MEDS: LEVALBUTEROL (NEB) 0.31 MG/3 ML AMP HHN ×7 (01:29→23:47)
[2018-06-25] MEDS: IPRATROPIUM (NEB) 0.5 MG/2.5 ML AMP HHN ×7 (01:29→23:47)
[2018-06-25 05:57] LABS: ADD MAN DIFF? NO
[2018-06-25 05:58] LABS: ABNORMAL IP MESSAGE 1; BASOPHILS % 0.1 % (0.0-2.0); HEMATOCRIT 26.6 % (42.0-52.0); HEMOGLOBIN 8.1 g/dl (14.0-18.0); LYMPHOCYTES # 0.3 10^3/ul (0.8-2.9); LYMPHOCYTES % 1.5 % (15.0-51.0); MEAN CORPUSCULAR HEMOGLOBIN 23.5 pg (29.0-33.0); MEAN CORPUSCULAR HGB CONC 30.5 g/dl (32.0-37.0); MEAN CORPUSCULAR VOLUME 77.3 fl (82.0-101.0); MEAN PLATELET VOLUME 10.3 fl (7.4-10.4); MONOCYTE # 0.2 10^3/ul (0.3-0.9); MONOCYTES % 1.5 % (0.0-11.0); NEUTROPHIL # 15.9 10^3/ul (1.6-7.5); NEUTROPHILS % 96.1 % (39.0-77.0); PLATELET COUNT 252 10^3/UL (140-415); POSITIVE DIFF @See below; RED BLOOD COUNT 3.44 10^6/ul (4.70-6.10)
[2018-06-25 05:58] LABS: WHITE BLOOD COUNT 16.5 10^3/ul (4.8-10.8)
[2018-06-25] MEDS: PANTOPRAZOLE 40 MG INJ IV (06:07)
[2018-06-25 06:31] LABS: ANION GAP 4 (5-13); BLOOD UREA NITROGEN 36 mg/dl (7-20); CALCIUM 8.5 mg/dl (8.4-10.2); CARBON DIOXIDE 33 mmol/L (21-31); CHLORIDE 105 mmol/L (97-110); CREATININE 0.83 mg/dl (0.61-1.24); GLUCOSE 179 mg/dl (70-220); MAGNESIUM 2.6 mg/dl (1.7-2.5); PHOSPHORUS 2.5 mg/dl (2.5-4.9); POTASSIUM 3.7 mmol/L (3.5-5.1); SODIUM 142 mmol/L (135-144)
[2018-06-25] MEDS: BUDESONIDE (NEB) 0.5MG/2ML AMP HHN ×2 (08:33→20:31)
[2018-06-25] MEDS: FINASTERIDE 5 MG TAB PO (09:02)
[2018-06-25] MEDS: CARBIDOPA/LEVODOPA (25/100) TAB PO ×3 (09:02→21:00)
[2018-06-25] MEDS: AMIODARONE 200 MG TAB PO (09:02)
[2018-06-25] MEDS: FUROSEMIDE 20 MG INJ IV (09:03)
[2018-06-25] MEDS: CHOLECALCIFEROL 2,000 UNIT CAP PO (09:03)
[2018-06-25] MEDS: BALSAM PERU/CASTOR OIL 60 GM TUBE TOP ×2 (09:03→22:28)
[2018-06-25] MEDS: METOPROLOL 25 MG TAB PO ×2 (09:03→21:00)
[2018-06-25] MEDS: METHYLPREDNISOLONE 40 MG INJ IV ×2 (09:03→22:11)
[2018-06-25] MEDS: INSULIN ASPART [NOVOLOG] 3 ML PEN SC ×2 (09:13→12:37)
[2018-06-25] MEDS: ENOXAPARIN 100 MG/ML SYG SC ×2 (09:14→23:42)
[2018-06-25] MEDS: MEROPENEM 1 GM/50ML(PMX) 50 ML IVPB (09:17)
[2018-06-25] MEDS: VANCOMYCIN 1 GM 250 ML IVPB (17:27)
[2018-06-25] MEDS: Insulin NOVOLOG SS MILD Algorithm (NPO/TPN/ENTERAL FEEDS) SC (17:33)
[2018-06-25] MEDS ORDERED: INSULIN ASPART [NOVOLOG] 3 ML PEN SC (18:00)
[2018-06-25] MEDS: TAMSULOSIN (SR) 0.4 MG CAP PO (21:00)
[2018-06-25] MEDS: ATORVASTATIN 40 MG TAB PO (21:00)
[2018-06-26] MEDS: MEROPENEM 1 GM/50ML(PMX) 50 ML IVPB ×3 (00:29→23:17)
[2018-06-26] MEDS: Insulin NOVOLOG SS MILD Algorithm (NPO/TPN/ENTERAL FEEDS) SC ×4 (00:36→18:59)
[2018-06-26] MEDS: IPRATROPIUM (NEB) 0.5 MG/2.5 ML AMP HHN ×5 (05:15→20:48)
[2018-06-26] MEDS: LEVALBUTEROL (NEB) 0.31 MG/3 ML AMP HHN ×5 (05:15→20:48)
[2018-06-26 05:38] LABS: ADD MAN DIFF? NO
[2018-06-26 05:42] LABS: WHITE BLOOD COUNT 25.3 10^3/ul (4.8-10.8)
[2018-06-26 05:42] LABS: ABNORMAL IP MESSAGE 1; BASOPHILS % 0.1 % (0.0-2.0); HEMATOCRIT 27.1 % (42.0-52.0); HEMOGLOBIN 8.2 g/dl (14.0-18.0); LYMPHOCYTES # 0.3 10^3/ul (0.8-2.9); LYMPHOCYTES % 1.1 % (15.0-51.0); MEAN CORPUSCULAR HEMOGLOBIN 23.9 pg (29.0-33.0); MEAN CORPUSCULAR HGB CONC 30.3 g/dl (32.0-37.0); MEAN PLATELET VOLUME 10.3 fl (7.4-10.4); MONOCYTE # 0.4 10^3/ul (0.3-0.9); MONOCYTES % 1.6 % (0.0-11.0); NEUTROPHIL # 24.4 10^3/ul (1.6-7.5); NEUTROPHILS % 96.4 % (39.0-77.0); PLATELET COUNT 239 10^3/UL (140-415); POSITIVE DIFF @See below; RED BLOOD COUNT 3.43 10^6/ul (4.70-6.10)
[2018-06-26] MEDS: PANTOPRAZOLE 40 MG INJ IV (06:09)
[2018-06-26 06:20] LABS: ANION GAP 6 (5-13); BLOOD UREA NITROGEN 47 mg/dl (7-20); CALCIUM 8.7 mg/dl (8.4-10.2); CARBON DIOXIDE 35 mmol/L (21-31); CHLORIDE 106 mmol/L (97-110); CREATININE 0.77 mg/dl (0.61-1.24); GLUCOSE 185 mg/dl (70-220); MAGNESIUM 2.9 mg/dl (1.7-2.5); PHOSPHORUS 2.2 mg/dl (2.5-4.9); POTASSIUM 3.7 mmol/L (3.5-5.1); SODIUM 147 mmol/L (135-144)
[2018-06-26] MEDS: BUDESONIDE (NEB) 0.5MG/2ML AMP HHN ×2 (08:19→20:48)
[2018-06-26 08:29] LABS: OCCULT BLOOD STOOL POSITIVE (NEGATIVE)
[2018-06-26] MEDS ORDERED: CASPOFUNGIN 50 MG in SOD CHLORIDE 0.9% 250 ML IVPB (08:30)
[2018-06-26] MEDS: METHYLPREDNISOLONE 40 MG INJ IV ×2 (08:46→22:54)
[2018-06-26] MEDS: FUROSEMIDE 20 MG INJ IV (08:46)
[2018-06-26] MEDS: FINASTERIDE 5 MG TAB PO (08:47)
[2018-06-26] MEDS: METOPROLOL 25 MG TAB PO ×2 (08:47→22:56)
[2018-06-26] MEDS: CARBIDOPA/LEVODOPA (25/100) TAB PO ×3 (08:47→22:56)
[2018-06-26] MEDS: AMIODARONE 200 MG TAB PO (08:48)
[2018-06-26] MEDS: CHOLECALCIFEROL 2,000 UNIT CAP PO (08:48)
[2018-06-26] MEDS: BALSAM PERU/CASTOR OIL 60 GM TUBE TOP ×2 (08:50→22:57)
[2018-06-26] MEDS: ENOXAPARIN 100 MG/ML SYG SC ×2 (08:59→21:00)
[2018-06-26] MEDS: FLUCONAZOLE 400 MG/NS (PMX) 200 ML IVPB (10:11)
[2018-06-26] MEDS ORDERED: VITAMIN A & D 5 GM OINT PACKET TOP (13:50)
[2018-06-26] MEDS: metroNIDAZOLE 500 MG/NS (PMX) 100 ML IVPB ×2 (14:00→22:57)
[2018-06-26] MEDS: VANCOMYCIN HCL 250 MG/5ML POSYG PO (18:52)
[2018-06-26] MEDS: CASPOFUNGIN 70 MG in SOD CHLORIDE 0.9% 250 ML IVPB (18:52)
[2018-06-26 18:54] LABS: HEMATOCRIT 26.6 % (42.0-52.0)
[2018-06-26 19:23] LABS: VANCOMYCIN,TROUGH < 5.0 ug/ml (10.0-20.0)
[2018-06-26] MEDS ORDERED: VANCOMYCIN 1 GM 250 ML IVPB (20:00)
[2018-06-26] MEDS: VANCOMYCIN 1 GM 250 ML IVPB (20:57)
[2018-06-26] MEDS: ATORVASTATIN 40 MG TAB PO (22:56)
[2018-06-26] MEDS: TAMSULOSIN (SR) 0.4 MG CAP PO (22:56)
[2018-06-27] MEDS: LEVALBUTEROL (NEB) 0.31 MG/3 ML AMP HHN ×6 (00:51→20:25)
[2018-06-27] MEDS: IPRATROPIUM (NEB) 0.5 MG/2.5 ML AMP HHN ×6 (00:51→20:25)
[2018-06-27] MEDS: VANCOMYCIN HCL 250 MG/5ML POSYG PO ×4 (00:57→17:30)
[2018-06-27 05:42] LABS: ADD MAN DIFF? NO
[2018-06-27 05:48] LABS: ABNORMAL IP MESSAGE 1; BASOPHILS % 0.1 % (0.0-2.0); HEMATOCRIT 24.8 % (42.0-52.0); HEMOGLOBIN 7.3 g/dl (14.0-18.0); LYMPHOCYTES # 0.2 10^3/ul (0.8-2.9); MEAN CORPUSCULAR HEMOGLOBIN 23.9 pg (29.0-33.0); MEAN CORPUSCULAR HGB CONC 29.4 g/dl (32.0-37.0); MEAN CORPUSCULAR VOLUME 81.3 fl (82.0-101.0); MEAN PLATELET VOLUME 10.7 fl (7.4-10.4); MONOCYTE # 0.5 10^3/ul (0.3-0.9); MONOCYTES % 2.1 % (0.0-11.0); NEUTROPHIL # 22.5 10^3/ul (1.6-7.5); PLATELET COUNT 228 10^3/UL (140-415); POSITIVE DIFF @See below; RED BLOOD COUNT 3.05 10^6/ul (4.70-6.10)
[2018-06-27 05:48] LABS: WHITE BLOOD COUNT 23.4 10^3/ul (4.8-10.8)
[2018-06-27] MEDS: metroNIDAZOLE 500 MG/NS (PMX) 100 ML IVPB ×3 (06:11→22:18)
[2018-06-27] MEDS: PANTOPRAZOLE 40 MG INJ IV (06:11)
[2018-06-27 06:17] LABS: ANION GAP 6 (5-13); BLOOD UREA NITROGEN 52 mg/dl (7-20); CALCIUM 8.4 mg/dl (8.4-10.2); CARBON DIOXIDE 34 mmol/L (21-31); CHLORIDE 109 mmol/L (97-110); CREATININE 0.79 mg/dl (0.61-1.24); GLUCOSE 164 mg/dl (70-220); MAGNESIUM 3.1 mg/dl (1.7-2.5); PHOSPHORUS 2.5 mg/dl (2.5-4.9); POTASSIUM 3.5 mmol/L (3.5-5.1); SODIUM 149 mmol/L (135-144)
[2018-06-27] MEDS: Insulin NOVOLOG SS MILD Algorithm (NPO/TPN/ENTERAL FEEDS) SC ×5 (06:53→23:49)
[2018-06-27] MEDS: BUDESONIDE (NEB) 0.5MG/2ML AMP HHN ×2 (08:56→20:25)
[2018-06-27] MEDS ORDERED: predniSONE 20 MG TAB PO (09:00)
[2018-06-27] MEDS: MEROPENEM 1 GM/50ML(PMX) 50 ML IVPB ×2 (10:13→21:27)
[2018-06-27] MEDS: VANCOMYCIN 1 GM 250 ML IVPB ×2 (10:13→20:01)
[2018-06-27] MEDS: CARBIDOPA/LEVODOPA (25/100) TAB PO ×3 (10:14→21:28)
[2018-06-27] MEDS: BALSAM PERU/CASTOR OIL 60 GM TUBE TOP ×2 (10:14→21:28)
[2018-06-27] MEDS: METHYLPREDNISOLONE 40 MG INJ IV ×2 (10:14→20:01)
[2018-06-27] MEDS: CHOLECALCIFEROL 2,000 UNIT CAP PO (10:14)
[2018-06-27] MEDS: FINASTERIDE 5 MG TAB PO (10:14)
[2018-06-27] MEDS: METOPROLOL 25 MG TAB PO ×2 (10:15→21:27)
[2018-06-27] MEDS: AMIODARONE 200 MG TAB PO (10:15)
[2018-06-27] MEDS: FUROSEMIDE 20 MG INJ IV ×2 (10:16→17:30)
[2018-06-27 12:32] LABS: AADO2 Arterial 248.9 mmHg (7.0-24.0); Allen Test ACCEPTAB; Arterial Base Excess 10.3 mmol/L (-3.0-3); Arterial Blood Gas Oxygen Sat 90.7 mmHG (95.0-100.0); Arterial COHb 0.4 % (0.0-3.0); Arterial Fraction of Oxyhgb 90.2 % (93.0-99.0); Arterial HCO3 34.2 mmol/L (22.0-26.0); Arterial MetHb 0.2 % (0.0-1.5); Arterial Total Hemglobin 8.7 g/dl (12.0-18.0); Arterial pCO2 43.1 mmhg (35-45); MODE HFNC; Site Left Radial
[2018-06-27 15:24] LABS: IMMEDIATE SPIN CROSSMATCH 1 2
[2018-06-27] MEDS: SOD CHLORIDE 0.9% 250 ML IV* (15:30)
[2018-06-27] MEDS: CASPOFUNGIN 50 MG in SOD CHLORIDE 0.9% 250 ML IVPB (17:29)
[2018-06-27] MEDS: ATORVASTATIN 40 MG TAB PO (21:27)
[2018-06-27] MEDS: TAMSULOSIN (SR) 0.4 MG CAP PO (21:28)
[2018-06-28] MEDS: VANCOMYCIN HCL 250 MG/5ML POSYG PO ×5 (00:46→23:26)
[2018-06-28] MEDS: LEVALBUTEROL (NEB) 0.31 MG/3 ML AMP HHN ×6 (01:37→20:14)
[2018-06-28] MEDS: IPRATROPIUM (NEB) 0.5 MG/2.5 ML AMP HHN ×6 (01:37→20:14)
[2018-06-28] MEDS: metroNIDAZOLE 500 MG/NS (PMX) 100 ML IVPB ×2 (06:00→13:30)
[2018-06-28] MEDS: PANTOPRAZOLE 40 MG INJ IV (06:00)
[2018-06-28] MEDS: FUROSEMIDE 20 MG INJ IV ×2 (06:01→18:05)
[2018-06-28] MEDS: Insulin NOVOLOG SS MILD Algorithm (NPO/TPN/ENTERAL FEEDS) SC ×4 (06:09→23:45)
[2018-06-28] MEDS: BUDESONIDE (NEB) 0.5MG/2ML AMP HHN ×2 (09:00→20:00)
[2018-06-28] MEDS: FINASTERIDE 5 MG TAB PO (09:05)
[2018-06-28] MEDS: METOPROLOL 25 MG TAB PO ×2 (09:05→23:14)
[2018-06-28] MEDS: METHYLPREDNISOLONE 40 MG INJ IV ×2 (09:05→23:13)
[2018-06-28] MEDS: AMIODARONE 200 MG TAB PO (09:06)
[2018-06-28] MEDS: CARBIDOPA/LEVODOPA (25/100) TAB PO ×3 (09:06→23:14)
[2018-06-28] MEDS: CHOLECALCIFEROL 2,000 UNIT CAP PO (09:06)
[2018-06-28] MEDS: BALSAM PERU/CASTOR OIL 60 GM TUBE TOP ×2 (09:06→23:15)
[2018-06-28] MEDS: MEROPENEM 1 GM/50ML(PMX) 50 ML IVPB (09:10)
[2018-06-28] MEDS: VANCOMYCIN 1 GM 250 ML IVPB (10:15)
[2018-06-28 10:29] LABS: VANCOMYCIN,TROUGH 13.1 ug/ml (10.0-20.0)
[2018-06-28 12:28] LABS: WHITE BLOOD COUNT 27.8 10^3/ul (4.8-10.8)
[2018-06-28 12:28] LABS: ABNORMAL IP MESSAGE 1; HEMOGLOBIN 11.2 g/dl (14.0-18.0); MEAN CORPUSCULAR HEMOGLOBIN 25.6 pg (29.0-33.0); MEAN CORPUSCULAR HGB CONC 31.1 g/dl (32.0-37.0); MEAN CORPUSCULAR VOLUME 82.2 fl (82.0-101.0); MEAN PLATELET VOLUME 11.1 fl (7.4-10.4); NUCLEATED RED BLOOD CELLS% 0.4 /100WBC (0.0-0.0); PLATELET COUNT 197 10^3/UL (140-415); POSITIVE DIFF @See below; RED BLOOD COUNT 4.38 10^6/ul (4.70-6.10); RED CELL DISTRIBUTION WIDTH 28.1 % (11.5-14.5)
[2018-06-28 12:36] LABS: ADD MAN DIFF? YES
[2018-06-28 12:47] LABS: ANION GAP 3 (5-13); BLOOD UREA NITROGEN 50 mg/dl (7-20); CALCIUM 8.1 mg/dl (8.4-10.2); CARBON DIOXIDE 39 mmol/L (21-31); CHLORIDE 107 mmol/L (97-110); CREATININE 0.84 mg/dl (0.61-1.24); GLUCOSE 165 mg/dl (70-220); MAGNESIUM 2.9 mg/dl (1.7-2.5); PHOSPHORUS 2.9 mg/dl (2.5-4.9); POTASSIUM 3.4 mmol/L (3.5-5.1); SODIUM 149 mmol/L (135-144)
[2018-06-28 14:09] LABS: ANISOCYTOSIS 2+ (0-0); BAND NEUTROPHILS #M 0.2 10^3/ul (0.0-0.6); BAND NEUTROPHILS % (M) 1 % (0-4); BURR CELLS 1+ (0-0); ERYTHROBLAST% (NRBC) (M) 1 % (0-0); HYPOCHROMASIA 1+ (0-0); MICROCYTOSIS 2+ (0-0); MONOCYTE #M 0.2 10^3/ul (0.3-0.9); MONOCYTES % (M) 1 % (0-11); MYELOCYTES #M 0.2 10^3/ul (0.0-0.0); MYELOCYTES % (M) 1 % (0-0); PLATELET ESTIMATE NORMAL; POIKILOCYTOSIS 1+ (0-0); POLYCHROMASIA 3+ (0-0); SCHISTOCYTES 1+ (0-0); SEGMENTED NEUTROPHILS (M) % 97 % (39-77); SMUDGE%M 3 % (0-0); TARGET CELLS 1+ (0-0)
[2018-06-28] MEDS: CLOPIDOGREL 75 MG TAB PO (15:49)
[2018-06-28] MEDS: POTASSIUM CHLORIDE 20 MEQ POWDER FOR ORAL SOLN NGT (15:58)
[2018-06-28 18:17] LABS: HEMATOCRIT 33.6 % (42.0-52.0); HEMOGLOBIN 10.6 g/dl (14.0-18.0)
[2018-06-28] MEDS: AZTREONAM 1 GM/NS (PMX) 50 ML IVPB (23:09)
[2018-06-28] MEDS: TAMSULOSIN (SR) 0.4 MG CAP PO (23:13)
[2018-06-28] MEDS: ATORVASTATIN 40 MG TAB PO (23:14)
[2018-06-28] MEDS: DOXYCYCLINE 100 MG in SOD CHLORIDE 0.9% 250 ML IVPB (23:31)
[2018-06-28] MEDS: RIFAXIMIN 200 MG TAB PO (23:45)
[2018-06-29] MEDS: metroNIDAZOLE 500 MG/NS (PMX) 100 ML IVPB ×3 (01:14→15:25)
[2018-06-29] MEDS: LEVALBUTEROL (NEB) 0.31 MG/3 ML AMP HHN ×6 (01:19→19:49)
[2018-06-29] MEDS: IPRATROPIUM (NEB) 0.5 MG/2.5 ML AMP HHN ×6 (01:19→19:49)
[2018-06-29] MEDS: PANTOPRAZOLE 40 MG INJ IV (05:37)
[2018-06-29] MEDS: VANCOMYCIN HCL 250 MG/5ML POSYG PO ×3 (05:37→17:47)
[2018-06-29] MEDS: FUROSEMIDE 20 MG INJ IV ×2 (05:39→17:48)
[2018-06-29] MEDS: Insulin NOVOLOG SS MILD Algorithm (NPO/TPN/ENTERAL FEEDS) SC ×3 (06:04→17:56)
[2018-06-29 06:19] LABS: ADD MAN DIFF? NO
[2018-06-29 06:44] LABS: WHITE BLOOD COUNT 21.9 10^3/ul (4.8-10.8)
[2018-06-29 06:44] LABS: ABNORMAL IP MESSAGE 1; BASOPHILS % 0.1 % (0.0-2.0); HEMATOCRIT 38.2 % (42.0-52.0); LYMPHOCYTES # 0.2 10^3/ul (0.8-2.9); LYMPHOCYTES % 1.1 % (15.0-51.0); MEAN CORPUSCULAR HGB CONC 31.4 g/dl (32.0-37.0); MEAN CORPUSCULAR VOLUME 82.7 fl (82.0-101.0); MONOCYTE # 0.2 10^3/ul (0.3-0.9); MONOCYTES % 0.9 % (0.0-11.0); NEUTROPHIL # 21.2 10^3/ul (1.6-7.5); NEUTROPHILS % 96.7 % (39.0-77.0); NUCLEATED RED BLOOD CELLS # 0.1 10^3/ul (0.0-0.0); NUCLEATED RED BLOOD CELLS% 0.5 /100WBC (0.0-0.0); PLATELET COUNT 148 10^3/UL (140-415); POSITIVE DIFF @See below; RED BLOOD COUNT 4.62 10^6/ul (4.70-6.10); RED CELL DISTRIBUTION WIDTH 28.2 % (11.5-14.5)
[2018-06-29 07:11] LABS: ANION GAP 5 (5-13); BLOOD UREA NITROGEN 51 mg/dl (7-20); CALCIUM 8.2 mg/dl (8.4-10.2); CARBON DIOXIDE 36 mmol/L (21-31); CHLORIDE 108 mmol/L (97-110); CREATININE 0.76 mg/dl (0.61-1.24); GLUCOSE 173 mg/dl (70-220); PHOSPHORUS 3.1 mg/dl (2.5-4.9); POTASSIUM 4.1 mmol/L (3.5-5.1); SODIUM 149 mmol/L (135-144)
[2018-06-29] MEDS: BUDESONIDE (NEB) 0.5MG/2ML AMP HHN ×2 (08:25→20:00)
[2018-06-29] MEDS: METHYLPREDNISOLONE 40 MG INJ IV ×2 (09:07→21:57)
[2018-06-29] MEDS: RIFAXIMIN 200 MG TAB PO ×3 (09:07→21:58)
[2018-06-29] MEDS: CARBIDOPA/LEVODOPA (25/100) TAB PO ×3 (09:08→21:58)
[2018-06-29] MEDS: CLOPIDOGREL 75 MG TAB PO (09:08)
[2018-06-29] MEDS: FINASTERIDE 5 MG TAB PO (09:08)
[2018-06-29] MEDS: METOPROLOL 25 MG TAB PO ×2 (09:08→21:00)
[2018-06-29] MEDS: AMIODARONE 200 MG TAB PO (09:08)
[2018-06-29] MEDS: CHOLECALCIFEROL 2,000 UNIT CAP PO (09:08)
[2018-06-29] MEDS: BALSAM PERU/CASTOR OIL 60 GM TUBE TOP ×2 (09:10→22:01)
[2018-06-29] MEDS: DOXYCYCLINE 100 MG in SOD CHLORIDE 0.9% 250 ML IVPB ×2 (09:11→22:47)
[2018-06-29] MEDS: AZTREONAM 1 GM/NS (PMX) 50 ML IVPB ×2 (10:42→21:54)
[2018-06-29] MEDS: POTASSIUM CHLORIDE 100 ML IVPB (17:11)
[2018-06-29] MEDS: ATORVASTATIN 40 MG TAB PO (21:58)
[2018-06-29] MEDS: TAMSULOSIN (SR) 0.4 MG CAP PO (21:58)
[2018-06-30] MEDS: IPRATROPIUM (NEB) 0.5 MG/2.5 ML AMP HHN ×6 (00:13→22:10)
[2018-06-30] MEDS: LEVALBUTEROL (NEB) 0.31 MG/3 ML AMP HHN ×6 (00:13→21:03)
[2018-06-30] MEDS: metroNIDAZOLE 500 MG/NS (PMX) 100 ML IVPB ×4 (01:58→22:00)
[2018-06-30] MEDS: VANCOMYCIN HCL 250 MG/5ML POSYG PO ×4 (02:02→17:51)
[2018-06-30] MEDS: Insulin NOVOLOG SS MILD Algorithm (NPO/TPN/ENTERAL FEEDS) SC ×4 (02:06→18:09)
[2018-06-30 05:45] LABS: ADD MAN DIFF? NO
[2018-06-30] MEDS: FUROSEMIDE 20 MG INJ IV ×2 (05:55→17:51)
[2018-06-30] MEDS: PANTOPRAZOLE 40 MG INJ IV (05:55)
[2018-06-30 06:00] LABS: ABNORMAL IP MESSAGE 1; BASOPHILS % 0.1 % (0.0-2.0); HEMATOCRIT 35.6 % (42.0-52.0); LYMPHOCYTES # 0.3 10^3/ul (0.8-2.9); LYMPHOCYTES % 1.6 % (15.0-51.0); MEAN CORPUSCULAR HEMOGLOBIN 25.6 pg (29.0-33.0); MEAN CORPUSCULAR HGB CONC 30.9 g/dl (32.0-37.0); MONOCYTE # 0.2 10^3/ul (0.3-0.9); MONOCYTES % 1.1 % (0.0-11.0); NEUTROPHIL # 18.4 10^3/ul (1.6-7.5); NEUTROPHILS % 96.4 % (39.0-77.0); NUCLEATED RED BLOOD CELLS # 0.1 10^3/ul (0.0-0.0); NUCLEATED RED BLOOD CELLS% 0.3 /100WBC (0.0-0.0); PLATELET COUNT 137 10^3/UL (140-415); POSITIVE DIFF @See below; RED BLOOD COUNT 4.29 10^6/ul (4.70-6.10); RED CELL DISTRIBUTION WIDTH 28.6 % (11.5-14.5)
[2018-06-30 06:00] LABS: WHITE BLOOD COUNT 19.1 10^3/ul (4.8-10.8)
[2018-06-30 06:14] LABS: ANION GAP 5 (5-13); BLOOD UREA NITROGEN 54 mg/dl (7-20); CALCIUM 8.3 mg/dl (8.4-10.2); CARBON DIOXIDE 36 mmol/L (21-31); CHLORIDE 107 mmol/L (97-110); CREATININE 0.78 mg/dl (0.61-1.24); GLUCOSE 172 mg/dl (70-220); MAGNESIUM 2.9 mg/dl (1.7-2.5); PHOSPHORUS 3.3 mg/dl (2.5-4.9); SODIUM 148 mmol/L (135-144)
[2018-06-30] MEDS: AZTREONAM 1 GM/NS (PMX) 50 ML IVPB ×2 (08:34→21:03)
[2018-06-30] MEDS: BUDESONIDE (NEB) 0.5MG/2ML AMP HHN ×2 (09:00→21:55)
[2018-06-30] MEDS: AMIODARONE 200 MG TAB PO (09:59)
[2018-06-30] MEDS: FINASTERIDE 5 MG TAB PO (09:59)
[2018-06-30] MEDS: METHYLPREDNISOLONE 40 MG INJ IV (10:00)
[2018-06-30] MEDS: RIFAXIMIN 200 MG TAB PO ×3 (10:00→21:00)
[2018-06-30] MEDS: CLOPIDOGREL 75 MG TAB PO (10:00)
[2018-06-30] MEDS: CHOLECALCIFEROL 2,000 UNIT CAP PO (10:00)
[2018-06-30] MEDS: CARBIDOPA/LEVODOPA (25/100) TAB PO ×3 (10:00→21:01)
[2018-06-30] MEDS: METOPROLOL 25 MG TAB PO ×2 (10:01→21:01)
[2018-06-30] MEDS: BALSAM PERU/CASTOR OIL 60 GM TUBE TOP ×2 (10:01→21:04)
[2018-06-30] MEDS: DOXYCYCLINE 100 MG in SOD CHLORIDE 0.9% 250 ML IVPB ×2 (10:01→21:04)
[2018-06-30] MEDS: TAMSULOSIN (SR) 0.4 MG CAP PO ×2 (21:02→21:11)
[2018-06-30] MEDS: ATORVASTATIN 40 MG TAB PO ×2 (21:02→21:12)
[2018-06-30] MEDS: ENOXAPARIN 100 MG/ML SYG SC (21:14)
[2018-07-01] MEDS: LEVALBUTEROL (NEB) 0.31 MG/3 ML AMP HHN ×6 (02:25→20:19)
[2018-07-01] MEDS: IPRATROPIUM (NEB) 0.5 MG/2.5 ML AMP HHN ×6 (02:25→20:20)
[2018-07-01] MEDS: Insulin NOVOLOG SS MILD Algorithm (NPO/TPN/ENTERAL FEEDS) SC ×4 (06:00→17:50)
[2018-07-01 06:06] LABS: ADD MAN DIFF? NO
[2018-07-01 06:15] LABS: WHITE BLOOD COUNT 18.9 10^3/ul (4.8-10.8)
[2018-07-01 06:15] LABS: ABNORMAL IP MESSAGE 1; BASOPHILS % 0.2 % (0.0-2.0); EOSINOPHILS # 0.1 10^3/ul (0.0-0.5); EOSINOPHILS % 0.6 % (0.0-7.0); HEMATOCRIT 35.1 % (42.0-52.0); HEMOGLOBIN 10.9 g/dl (14.0-18.0); LYMPHOCYTES # 0.6 10^3/ul (0.8-2.9); MEAN CORPUSCULAR HEMOGLOBIN 26.2 pg (29.0-33.0); MEAN CORPUSCULAR HGB CONC 31.1 g/dl (32.0-37.0); MEAN CORPUSCULAR VOLUME 84.4 fl (82.0-101.0); MONOCYTE # 0.5 10^3/ul (0.3-0.9); MONOCYTES % 2.9 % (0.0-11.0); NEUTROPHIL # 17.6 10^3/ul (1.6-7.5); NEUTROPHILS % 92.6 % (39.0-77.0); NUCLEATED RED BLOOD CELLS% 0.2 /100WBC (0.0-0.0); PLATELET COUNT 132 10^3/UL (140-415); POSITIVE DIFF @See below; RED BLOOD COUNT 4.16 10^6/ul (4.70-6.10)
[2018-07-01] MEDS: PANTOPRAZOLE 40 MG INJ IV (06:30)
[2018-07-01] MEDS: VANCOMYCIN HCL 250 MG/5ML POSYG PO ×4 (06:30→17:47)
[2018-07-01] MEDS: metroNIDAZOLE 500 MG/NS (PMX) 100 ML IVPB ×3 (06:31→21:07)
[2018-07-01] MEDS: FUROSEMIDE 20 MG INJ IV ×2 (06:32→17:47)
[2018-07-01 06:53] LABS: ALBUMIN 2.3 g/dl (3.3-4.9); ANION GAP 1 (5-13); BLOOD UREA NITROGEN 59 mg/dl (7-20); CALCIUM 8.2 mg/dl (8.4-10.2); CARBON DIOXIDE 38 mmol/L (21-31); CHLORIDE 108 mmol/L (97-110); CREATININE 0.81 mg/dl (0.61-1.24); GLUCOSE 141 mg/dl (70-220); MAGNESIUM 2.9 mg/dl (1.7-2.5); PHOSPHORUS 3.5 mg/dl (2.5-4.9); POTASSIUM 3.8 mmol/L (3.5-5.1); SODIUM 147 mmol/L (135-144)
[2018-07-01 08:41] LABS: AADO2 Arterial 211.7 mmHg (7.0-24.0); Allen Test ACCEPTAB; Arterial Base Excess 9.6 mmol/L (-3.0-3); Arterial Blood Gas Oxygen Sat 97.3 mmHG (95.0-100.0); Arterial COHb 0.4 % (0.0-3.0); Arterial Fraction of Oxyhgb 96.8 % (93.0-99.0); Arterial HCO3 32.9 mmol/L (22.0-26.0); Arterial MetHb 0.1 % (0.0-1.5); Arterial pCO2 39.6 mmhg (35-45); MODE HFNC; Site Right Radial
[2018-07-01] MEDS: METOPROLOL 25 MG TAB PO ×2 (09:00→21:04)
[2018-07-01] MEDS: BUDESONIDE (NEB) 0.5MG/2ML AMP HHN ×2 (09:18→20:19)
[2018-07-01] MEDS: METHYLPREDNISOLONE 40 MG INJ IV (09:21)
[2018-07-01] MEDS: FINASTERIDE 5 MG TAB PO (09:22)
[2018-07-01] MEDS: CLOPIDOGREL 75 MG TAB PO (09:22)
[2018-07-01] MEDS: CHOLECALCIFEROL 2,000 UNIT CAP PO (09:22)
[2018-07-01] MEDS: AMIODARONE 200 MG TAB PO (09:22)
[2018-07-01] MEDS: RIFAXIMIN 200 MG TAB PO ×3 (09:22→21:07)
[2018-07-01] MEDS: CARBIDOPA/LEVODOPA (25/100) TAB PO ×3 (09:22→21:05)
[2018-07-01] MEDS: BALSAM PERU/CASTOR OIL 60 GM TUBE TOP ×2 (09:23→21:06)
[2018-07-01] MEDS: AZTREONAM 1 GM/NS (PMX) 50 ML IVPB ×2 (09:26→21:02)
[2018-07-01] MEDS: ENOXAPARIN 100 MG/ML SYG SC (09:27)
[2018-07-01] MEDS: DOXYCYCLINE 100 MG in SOD CHLORIDE 0.9% 250 ML IVPB ×2 (11:22→21:03)
[2018-07-01] MEDS: NYSTATIN SUSP 5 ML CUP PO ×3 (16:47→21:04)
[2018-07-01] MEDS ORDERED: CHLORHEXIDINE GLUCONATE 15 ML UD CUP MT (21:00)
[2018-07-01] MEDS: CHLORHEXIDINE GLUCONATE 15 ML UD CUP MT (21:03)
[2018-07-01] MEDS: ATORVASTATIN 40 MG TAB PO (21:05)
[2018-07-01] MEDS: APIXABAN 5 MG TABLET PO (21:13)
[2018-07-02] MEDS: Insulin NOVOLOG SS MILD Algorithm (NPO/TPN/ENTERAL FEEDS) SC
[2018-07-02] MEDS: VANCOMYCIN HCL 250 MG/5ML POSYG PO (00:35)
[2018-07-02] MEDS: LEVALBUTEROL (NEB) 0.31 MG/3 ML AMP HHN (01:00)
[2018-07-02] MEDS: IPRATROPIUM (NEB) 0.5 MG/2.5 ML AMP HHN (01:02)
== END 2018-07-02 01:45 | DRG 329 ==
LOC: 6WM 06-11 16:59 → ICU 06-16 11:39 → E/R 10:32 → 2NE 06-09 16:43 → ICU 06-16 13:38 → MS1 06-16 19:30 → TEL 12:02 → ICU 06-16 20:03
PROVIDERS: Internal Medicine
PROC: 0DJ08ZZ Inspection of Upper Intestinal Tract, Via Natural or Artificial Opening Endoscopic (ICD-10-PCS; 2018-06-05 14:00)
PROC: 0DBK8ZX Excision of Ascending Colon, Via Natural or Artificial Opening Endoscopic, Diagnostic (ICD-10-PCS; 2018-06-05 14:00)
PROC: 0DBL8ZX Excision of Transverse Colon, Via Natural or Artificial Opening Endoscopic, Diagnostic (ICD-10-PCS; 2018-06-05 14:00)
PROC: 0DBP8ZX Excision of Rectum, Via Natural or Artificial Opening Endoscopic, Diagnostic (ICD-10-PCS; 2018-06-05 14:00)
PROC: 0DTF0ZZ Resection of Right Large Intestine, Open Approach (ICD-10-PCS; principal; 2018-06-05 14:20)
PROC: 30233N1 Transfusion of Nonautologous Red Blood Cells into Peripheral Vein, Percutaneous Approach (ICD-10-PCS; 2018-06-05 14:20)
PROC: 0T9B70Z Drainage of Bladder with Drainage Device, Via Natural or Artificial Opening (ICD-10-PCS; 2018-06-05 14:20)
PROC: 0T9B70Z Drainage of Bladder with Drainage Device, Via Natural or Artificial Opening (ICD-10-PCS; 2018-06-05 14:20)
DX: C18.4 Malignant neoplasm of transverse colon (principal); I26.99 Other pulmonary embolism without acute cor pulmonale; J96.01 Acute respiratory failure with hypoxia; J69.0 Pneumonitis due to inhalation of food and vomit; N17.9 Acute kidney failure, unspecified; D62 Acute posthemorrhagic anemia; E46 Unspecified protein-calorie malnutrition; N13.4 Hydroureter; N39.0 Urinary tract infection, site not specified; A04.72 Enterocolitis due to Clostridium difficile, not specified as recurrent; I47.1 Supraventricular tachycardia; B37.0 Candidal stomatitis; I69.354 Hemiplegia and hemiparesis following cerebral infarction affecting left non-dominant side; D63.0 Anemia in neoplastic disease; D50.9 Iron deficiency anemia, unspecified; D17.9 Benign lipomatous neoplasm, unspecified; E78.5 Hyperlipidemia, unspecified; F03.90 Unspecified dementia, unspecified severity, without behavioral disturbance, psychotic disturbance, mood disturbance, and anxiety; G20 Parkinson's disease; I95.9 Hypotension, unspecified; I25.10 Atherosclerotic heart disease of native coronary artery without angina pectoris; K63.5 Polyp of colon; K40.20 Bilateral inguinal hernia, without obstruction or gangrene, not specified as recurrent; K20.9 Esophagitis, unspecified; K29.70 Gastritis, unspecified, without bleeding; N40.0 Benign prostatic hyperplasia without lower urinary tract symptoms; N43.3 Hydrocele, unspecified; R55 Syncope and collapse; R13.12 Dysphagia, oropharyngeal phase; R03.0 Elevated blood-pressure reading, without diagnosis of hypertension; R22.2 Localized swelling, mass and lump, trunk; R19.5 Other fecal abnormalities; R33.9 Retention of urine, unspecified; Z68.25 Body mass index [BMI] 25.0-25.9, adult; Z87.891 Personal history of nicotine dependence
CPT/HCPCS: 36415; 36430; 36600; 70450; 71045; 71260; 71275; 74018; 74177; 78278; 80048; 80053; 80061; 80069; 80202; 81001; 82270; 82378; 82550; 82553; 82728; 82803; 82962; 83036; 83540; 83735; 83880; 84100; 84134; 84439; 84443; 84478; 84484; 85014; 85018; 85025; 85610; 85730; 86644; 86850; 86900; 86901; 86920; 87045; 87075; 87081; 87086; 88305; 88307; 92526; 92610; 93005; 93306; 93880; 93970; 94640; 94660; 94664; 97110; 97116; 97161; 97164; 97530; 99285-25